=== PATIENT | female | born 1960 | race Caucasian/White ===

== ENCOUNTER 2018-04-09 18:55 | Inpatient (IN) | payer OTHER ==
[~2018-04-09] VITALS: Ht 160 cm; Wt 97.0 kg
[2018-04-09 19:39] LABS: Basophils # (auto) 0 uL; Basophils % (auto) 0.1 % (0.0-2.0); Eosinophils # (auto) 0 uL; Eosinophils % (auto) 0.1 % (0.0-7.0); Hematocrit 38.2 % (36.0-46.0); Hemoglobin 12.1 g/dL (12.2-16.2); Lymphocytes # (auto) 1.3 uL; Lymphocytes % (auto) 10.9 % (10.0-50.0); Mean Corpuscular Hemoglobin 32.1 pg (28.0-32.0); Mean Corpuscular Hgb Conc. 31.7 g/dL (32.0-36.0); Mean Corpuscular Volume 101.2 fL (80.0-100.0); Monocytes # (auto) 0.7 uL; Monocytes % (auto) 6.2 % (0.0-12.0); Neutrophils # (auto) 9.8 uL; Neutrophils % (auto) 82.7 % (37.0-80.0); Nucleated Red Blood Cells % 0.1 %; Platelet Count (auto) 232 10^3/uL (140-450); Red Blood Cells 3.77 10^6/uL (4.0-5.20); Red Cell Distribution Width 17.9 % (11.8-14.3); White Blood Cell 11.8 10^3/uL (4.4-10.8)
[2018-04-09 19:57] LABS: Alanine Aminotransferase 62 U/L (13-56); Albumin 1.8 g/dL (3.4-5.0); Anion Gap 8 (5-15); Aspartate Aminotransferase 115 U/L (15-37); BUN/Creatinine Ratio 10.9; Blood Alcohol < 3.0 mg/dL (0-5); Blood Urea Nitrogen 19 mg/dL (7-18); Calcium 7.4 mg/dL (8.5-10.1); Carbon Dioxide 19 mmol/L (21-32); Chloride 108 mmol/L (98-107); GFR African American 39 mL/min; GFR Non-African American 32 mL/min; Glucose 96 mg/dL (74-106); Magnesium 2.1 mg/dL (1.6-2.6); Potassium 4.7 mmol/L (3.5-5.1); Sodium 135 mmol/L (136-145)
[2018-04-09 20:02] LABS: Alkaline Phosphatase 255 U/L (45-117); Bilirubin, Total 2.1 mg/dL (0.2-1.0); Total Protein 4.8 g/dL (6.4-8.2)
[2018-04-09 22:23] LABS: INR 1.34 (0.9-1.15); Partial Thromboplastin Time 30.8 sec (23.78-33.04); Prothrombin Time 14.1 sec (9.27-12.13)
[2018-04-09] MEDS ORDERED: NOREPINEPHRINE 8 MG/250ML KIT 250 ML IV ONE (23:17)
[2018-04-09] MEDS: NOREPINEPHRINE 8 MG/250ML KIT 250 ML IV SCH (23:30)
[2018-04-10] MEDS ORDERED: SODIUM CHLORIDE 0.9% 1,000 ML IV ONE ×3 (00:30→16:00)
[2018-04-10 00:48] LABS: Urine Bacteria MANY /hpf (None Seen); Urine Blood Negative /uL (Negative); Urine Hyaline Cast FEW /lpf (0 - 2); Urine Specific Gravity 1.018 (1.001-1.035); Urine WBC 89 /hpf (0 - 5)
[2018-04-10] MEDS ORDERED: cefTRIAXone 1GM/50ML D5W 50 ML IV ONE (01:30)
[2018-04-10 01:35] LABS: Amphetamine Screen, Urine NEGATIVE (NEGATIVE); Barbiturate Scree,Urine NEGATIVE (NEGATIVE); Benzodiazephine Screen, Urine NEGATIVE (NEGATIVE); Cannabinoid Screen, Urine NEGATIVE (NEGATIVE); Cocaine Screen, Urine NEGATIVE (NEGATIVE); Opiate Scree,Urine POSITIVE (NEGATIVE); Phencyclidine Screen, Urine NEGATIVE (NEGATIVE)
[2018-04-10] MEDS ORDERED: ALBUMIN 25% 100 ML IV ONE (06:15)
[2018-04-10] MEDS ORDERED: ONDANSETRON HCL 4 MG/2 ML VIAL IV PRN (06:15)
[2018-04-10] MEDS ORDERED: ACETAMINOPHEN 500 MG TAB PO PRN (06:15)
[2018-04-10 07:24] LABS: Basophils # (auto) 0.1 uL; Basophils % (auto) 0.6 % (0.0-2.0); Eosinophils # (auto) 0 uL; Eosinophils % (auto) 0.1 % (0.0-7.0); Hematocrit 37.6 % (36.0-46.0); Lymphocytes # (auto) 2.3 uL; Lymphocytes % (auto) 18.8 % (10.0-50.0); Mean Corpuscular Hemoglobin 32.1 pg (28.0-32.0); Mean Corpuscular Hgb Conc. 31.9 g/dL (32.0-36.0); Mean Corpuscular Volume 100.5 fL (80.0-100.0); Monocytes % (auto) 7.7 % (0.0-12.0); Neutrophils % (auto) 72.8 % (37.0-80.0); Nucleated Red Blood Cells % 0.1 %; Platelet Count (auto) 289 10^3/uL (140-450); Red Blood Cells 3.74 10^6/uL (4.0-5.20); Red Cell Distribution Width 17.3 % (11.8-14.3); White Blood Cell 12.3 10^3/uL (4.4-10.8)
[2018-04-10] MEDS ORDERED: LACTULOSE 20Gm/30ML SOLN PO ONE ×2 (07:45→15:15)
[2018-04-10 07:50] LABS: Lactic Acid w/Reflex 2.3 mmol/L (0.4-2.0)
[2018-04-10 08:01] LABS: BUN/Creatinine Ratio 13.5; Potassium 4.4 mmol/L (3.5-5.1)
[2018-04-10] MEDS: cefTRIAXone 1GM/50ML D5W 50 ML IV SCH (09:00)
[2018-04-10] MEDS ORDERED: LORazepam 2MG/ML-1ML VIAL IV ONE (10:45)
[2018-04-10] MEDS ORDERED: DILTIAZEM HCL 25 MG/5 ML VIAL IV ONE ×2 (10:45→16:45)
[2018-04-10] MEDS: LORazepam 2MG/ML-1ML VIAL ONE ×2 (10:54→16:30)
[2018-04-10 12:08] LABS: Albumin 1.8 g/dL (3.4-5.0); Bilirubin, Direct 1.6 mg/dL (0-0.2)
[2018-04-10 12:11] LABS: Bilirubin, Total 2.1 mg/dL (0.2-1.0); Total Protein 4.7 g/dL (6.4-8.2)
[2018-04-10] MEDS: NOREPINEPHRINE 8 MG/250ML KIT 250 ML IV SCH (14:47)
[2018-04-10] MEDS ORDERED: PANTOPRAZOLE 40 MG/10 ML VIAL IV ONE (15:15)
[2018-04-10] MEDS: SODIUM CHLORIDE 0.9% 1,000 ML IV SCH ×2 (15:30→22:14)
[2018-04-10] MEDS: LACTULOSE 20Gm/30ML SOLN PO SCH (18:00)
[2018-04-10] MEDS ORDERED: AMIODARONE HCL 150 MG in D5W 5% 100 ML IV ONE (18:30)
[2018-04-10] MEDS ORDERED: AMIODARONE HCL 900 MG in DEXTROSE 500 ML IV SCH (18:45)
[2018-04-10] MEDS: LORazepam 2MG/ML-1ML VIAL IV PRN (20:30)
[2018-04-11] MEDS: LACTULOSE 20Gm/30ML SOLN PO SCH ×5 (00:09→23:31)
[2018-04-11] MEDS: AMIODARONE HCL 900 MG in DEXTROSE 500 ML IV SCH ×2 (01:30→15:25)
[2018-04-11 04:11] LABS: Basophils # (auto) 0.1 uL; Eosinophils # (auto) 0 uL; Hemoglobin 10.8 g/dL (12.2-16.2); Lymphocytes # (auto) 1.6 uL; Monocytes # (auto) 0.5 uL; Neutrophils % (auto) 76.6 % (37.0-80.0)
[2018-04-11 04:13] LABS: Basophils % (auto) 0.6 % (0.0-2.0); Eosinophils % (auto) 0.1 % (0.0-7.0); Hematocrit 34.2 % (36.0-46.0); Lymphocytes % (auto) 17.3 % (10.0-50.0); Mean Corpuscular Hemoglobin 32.4 pg (28.0-32.0); Mean Corpuscular Hgb Conc. 31.6 g/dL (32.0-36.0); Mean Corpuscular Volume 102.6 fL (80.0-100.0); Monocytes % (auto) 5.4 % (0.0-12.0); Neutrophils # (auto) 7.2 uL; Platelet Count (auto) 222 10^3/uL (140-450); Red Blood Cells 3.33 10^6/uL (4.0-5.20); Red Cell Distribution Width 17.2 % (11.8-14.3); White Blood Cell 9.4 10^3/uL (4.4-10.8)
[2018-04-11 04:46] LABS: Albumin 2.2 g/dL (3.4-5.0); BUN/Creatinine Ratio 12.7; Calcium 6.4 mg/dL (8.5-10.1); Potassium 3.9 mmol/L (3.5-5.1)
[2018-04-11 04:49] LABS: Bilirubin, Total 2.6 mg/dL (0.2-1.0); Total Protein 4.8 g/dL (6.4-8.2)
[2018-04-11] MEDS: SODIUM CHLORIDE 0.9% 1,000 ML IV SCH ×3 (05:04→17:22)
[2018-04-11] MEDS: PANTOPRAZOLE 40 MG/10 ML VIAL IV SCH (09:03)
[2018-04-11] MEDS: cefTRIAXone 1GM/50ML D5W 50 ML IV SCH (09:03)
[2018-04-11 09:12] LABS: Urine Amorphous Crystal FEW /hpf (None Seen); Urine Bacteria FEW /hpf (None Seen); Urine Blood 1+ /uL (Negative); Urine Hyaline Cast MOD /lpf (0 - 2); Urine Specific Gravity 1.014 (1.001-1.035); Urine WBC 102 /hpf (0 - 5); Urine WBC Clumps PRESENT /hpf (None Seen)
--- NOTE | 2018-04-11 10:04 | NUR ---
ORDER AND CLINICALS FAXED TO [facility] REQUESTING TRANSFER ..FAX [phone] PHONE [phone]
[2018-04-11] MEDS ORDERED: ALBUTEROL SULF 2.5 MG/0.5ML(0.5%) NEB SOLN NEB ONE (10:15)
[2018-04-11] MEDS ORDERED: IPRATROPIUM BROM 0.5 MG/2.5ML INH SOL NEB ONE (10:15)
[2018-04-11] MEDS ORDERED: ETOMIDATE (2MG/ML) 20ML VIAL IV ONE (12:45)
[2018-04-11] MEDS ORDERED: SUCCINYLCHOLINE CHLORIDE 20 MG/ML 10ML VIAL IV ONE (12:45)
[2018-04-11] MEDS ORDERED: MIDAZOLAM DRIP 50 mg/50mL 50 ML IV ONE (12:53)
[2018-04-11 13:02] VITALS: BP 144/87
[2018-04-11] MEDS: MIDAZOLAM DRIP 50 mg/50mL 50 ML IV SCH ×2 (13:20→15:47)
[2018-04-11 14:07] VITALS: BP 108/51
[2018-04-11 15:50] VITALS: BP 111/58
--- NOTE | 2018-04-11 15:55 | NUR ---
NEW TRANSFER ORDER FAXED TO [facility] [phone]. CONTACT IS [place] [phone]
--- NOTE | 2018-04-11 16:45 | NUR ---
WOUND CARE NOTE: PATIENT IN ER BED 5. SHE HAS BEEN ADMITTED TO [facility] WITH DIAGNOSIS OF HYPOTENSION. SHE HAS BEEN INTUBATED, SEDATED, CURRENT ABAD SCORE IS 10. PATIENT HAS BLANCHABLE REDNESS TO BILATERAL PLANTAR FEET. THERE IS A TRANSFER ORDER TO [facility]. PLACED SKIN/WOUND CARE PLAN, PATIENT WOULD BENEFIT FROM FREQUENT TURN SCHEDULE Q 2 HOURS, PRN CONDITION PERMITS, WITH PRESSURE REDISTRIBUTION USING PILLOWS/WEDGES, BID/PRN APPLICATION OF MOISTURE BARRIER CREAM, COVERING UPPER MEDIAL SACRUM WITH OPTIFOAM GENTLE SACRAL DRESSING PREVENTATIVE, ELEVATION OF BILATERAL FEET/HEELS USING PILLOWS, DIETARY CONSULT FOR LOW ABAD, CONTINUED MONITORING BY WOUND CARE TEAM.
[2018-04-11] MEDS: PROPOFOL 100 ML IV SCH (17:21)
[2018-04-11 18:00] VITALS: BP 99/54
[2018-04-11 20:00] VITALS: BP 95/47
[2018-04-11 22:00] VITALS: BP 60/22
[2018-04-11 22:22] LABS: Folate (Folic Acid) 16.88 ng/mL (5.38-24)
[2018-04-12] VITALS (25 sets, daily range): BP systolic 85–125; BP diastolic 18–81
[2018-04-12] MEDS: NOREPINEPHRINE 8 MG/250ML KIT 250 ML IV SCH (00:34)
[2018-04-12] MEDS: SODIUM CHLORIDE 0.9% 1,000 ML IV SCH ×4 (00:38→20:50)
[2018-04-12] MEDS: LACTULOSE 20Gm/30ML SOLN PO SCH ×3 (06:25→18:29)
--- NOTE | 2018-04-12 09:04 | NUR ---
HOLD P.T. UNTIL PT IS EXTUBATED.
[2018-04-12] MEDS: cefTRIAXone 1GM/50ML D5W 50 ML IV SCH (09:12)
[2018-04-12] MEDS: PANTOPRAZOLE 40 MG/10 ML VIAL IV SCH (09:12)
[2018-04-12 09:23] LABS: Basophils # (auto) 0.1 uL; Hemoglobin 9.9 g/dL (12.2-16.2); Monocytes # (auto) 0.8 uL; Neutrophils % (auto) 67.4 % (37.0-80.0); White Blood Cell 11.2 10^3/uL (4.4-10.8)
[2018-04-12 09:25] LABS: Basophils % (auto) 0.8 % (0.0-2.0); Eosinophils # (auto) 0.2 uL; Eosinophils % (auto) 1.3 % (0.0-7.0); Hematocrit 32.1 % (36.0-46.0); Lymphocytes # (auto) 2.6 uL; Lymphocytes % (auto) 23.7 % (10.0-50.0); Mean Corpuscular Hemoglobin 32.4 pg (28.0-32.0); Mean Corpuscular Hgb Conc. 30.9 g/dL (32.0-36.0); Mean Corpuscular Volume 104.6 fL (80.0-100.0); Monocytes % (auto) 6.8 % (0.0-12.0); Neutrophils # (auto) 7.5 uL; Nucleated Red Blood Cells % 0.2 %; Platelet Count (auto) 182 10^3/uL (140-450); Red Blood Cells 3.07 10^6/uL (4.0-5.20); Red Cell Distribution Width 18.1 % (11.8-14.3)
[2018-04-12 09:39] LABS: Albumin 1.7 g/dL (3.4-5.0); Calcium 6.1 mg/dL (8.5-10.1); Potassium 3.5 mmol/L (3.5-5.1)
[2018-04-12 09:44] LABS: BUN/Creatinine Ratio 13.8; Bilirubin, Total 2.1 mg/dL (0.2-1.0); Total Protein 3.9 g/dL (6.4-8.2)
[2018-04-12] MEDS: AMIODARONE HCL 200 MG TAB PO SCH (10:05)
--- NOTE | 2018-04-12 12:13 | NUR ---
SPOKE WITH TODD DILLARD AT [facility]...SHE WILL WORK ON TRANSFERRING PATIENT.
[2018-04-12] MEDS: PROPOFOL 100 ML IV SCH (13:41)
[2018-04-12] MEDS: MIDAZOLAM DRIP 50 mg/50mL 50 ML IV SCH ×2 (15:27→19:50)
--- NOTE | 2018-04-12 15:27 | NUR ---
Nutrition Assessment/consult Notes please see attached link for complete assessment Est. Needs BW [id number] kcal (20-23 kcal/kgBW), 49-64 gms pro (0.6-0.8 gms/kgBW d/t elev ammonia severe hypoalb). Will continue to monitor pertinent labs and reassess nutrient need prn Rec: EN support with Nutrihep @ 45ml/hr per MD approval Addendum: 04/12/18 at [address] Amended: Links added.
--- NOTE | 2018-04-12 19:56 | NUR ---
REPORT Report received from MARY Navarrete.
--- NOTE | 2018-04-12 20:09 | NUR ---
ADMIT TO ICU Pt admitted to ICU via gurney on portable bus monitor, portable O2, intubated and being bagged by RT. Pt sedated. Pt transferred to bed, connected to mechanical ventilator by RT, and connected to ICU bedside monitoring without incident. BVM at bedside. Pt weighed by built in bed scale. See IV spreadsheet and completed physical assessment intervention. Bed locked, in lowest position with top two side rails up, and call light within reach. All alarms on and audible. Will continue to monitor pt.
--- NOTE | 2018-04-12 22:33 | NUR ---
CALL TO Called and spoke with Bk, pt's who confirmed the correct password. Updated on pt condition, admission to ICU room, and answered all questions. Bk verbalized understanding and provided admission answers. Bk stated he will try to bring in pt's home medications tomorrow afternoon.
[2018-04-13] VITALS (106 sets, daily range): BP systolic 67–151; BP diastolic 37–98
[2018-04-13] MEDS: LACTULOSE 20Gm/30ML SOLN PO SCH ×5 (00:15→23:50)
[2018-04-13] MEDS: ALBUTEROL SULF 2.5 MG/0.5ML(0.5%) NEB SOLN NEB PRN ×3 (02:16→18:22)
[2018-04-13] MEDS: IPRATROPIUM BROM 0.5 MG/2.5ML INH SOL NEB PRN ×3 (02:16→18:22)
[2018-04-13 04:00] LABS: Basophils # (auto) 0.1 uL; Basophils % (auto) 0.7 % (0.0-2.0); Eosinophils # (auto) 0.1 uL; Eosinophils % (auto) 0.6 % (0.0-7.0); Hematocrit 35.1 % (36.0-46.0); Hemoglobin 11.1 g/dL (12.2-16.2); Lymphocytes # (auto) 1.6 uL; Lymphocytes % (auto) 11.9 % (10.0-50.0); Mean Corpuscular Hgb Conc. 31.8 g/dL (32.0-36.0); Mean Corpuscular Volume 100.9 fL (80.0-100.0); Monocytes # (auto) 0.5 uL; Monocytes % (auto) 3.8 % (0.0-12.0); Neutrophils # (auto) 11.3 uL; Nucleated Red Blood Cells % 0.1 %; Platelet Count (auto) 167 10^3/uL (140-450); Red Blood Cells 3.48 10^6/uL (4.0-5.20); Red Cell Distribution Width 17.8 % (11.8-14.3); White Blood Cell 13.7 10^3/uL (4.4-10.8)
[2018-04-13 04:14] LABS: Albumin 1.6 g/dL (3.4-5.0); Potassium 3.3 mmol/L (3.5-5.1)
[2018-04-13 04:17] LABS: BUN/Creatinine Ratio 14.2; Bilirubin, Total 2.7 mg/dL (0.2-1.0); Total Protein 3.8 g/dL (6.4-8.2)
--- NOTE | 2018-04-13 04:54 | NUR ---
Respiratory note: FIO2 INCREASED TO 40% POST ABG RESULTS. RN AWARE OF CHANGES
[2018-04-13] MEDS: SODIUM CHLORIDE 0.9% 1,000 ML IV SCH (06:32)
[2018-04-13] MEDS: NOREPINEPHRINE 8 MG/250ML KIT 250 ML IV SCH ×2 (06:32→23:49)
[2018-04-13] MEDS: MIDAZOLAM DRIP 50 mg/50mL 50 ML IV SCH ×2 (06:32→19:53)
[2018-04-13] MEDS: PROPOFOL 100 ML IV SCH ×2 (07:04→23:52)
--- NOTE | 2018-04-13 07:45 | NUR ---
REPORT Report given to quita Butler RN. Care endorsed.
--- NOTE | 2018-04-13 07:46 | NUR ---
CHARTING ERROR ON VENT. CHARTING, WRONG PT. AT 0650. Addendum: 04/13/18 at 0747 by Char Ramirez RT Amended: Links added.
--- NOTE | 2018-04-13 07:55 | NUR ---
ASSESS- PT. LYING IN BED ON VENT SIZE # 8.0 ET, 23 AT THE LIP, AC-14, TV-500, PEEP-5, FIO2-40%. LUNGS CLEAR ANNY. INSPIRATORY AND EXPIRATORY. PT. HAS GAG/COUGH REFLEX. PUPILS 4 AND BRISK ANNY. ON VERSED GTT. AT 10 MG./HR. AND PROPOFOL GTT. AT 10 MCG. TLC RT. IJ INTACT. NGT RT. NARE INTACT. PT. IS NPO. ABD. SOFT, LG. BOWEL SOUNDS ALL FOUR QUADRANTS. F/C TO GRAVITY WITH LT. HAKEEM URINE SM. AMOUNT. RADIAL PULSES WEAK, PALPABLE ANNY. PEDAL PULSES WEAK, PALPABLE ANNY. 1 PLUS PEDAL EDEMA LE ANNY. SKIN TEARS TO LT. ARM TIMES 2 WITH OPTIFOAM DSG. D/I. HEELS PINK, BLANCHABLE ANNY. ABRASION TO RT. ANKLE OPEN TO AIR, NO DRAINAGE. LEVOPHED GTT. AT 6 MCG. TO KEEP SBP> 90. A-FIB, HR 80'S-90'S WITH PVC'S. FLEXISEAL TO GRAVITY WITH GREEN LIQUID STOOL LG. AMOUNT. ON CONTACT ISOLATION TO R/O C-DIFF.
--- NOTE | 2018-04-13 08:32 | NUR ---
DR. Keith FONTANA Provider/Hospitalist at bedside. GAVE UPDATE ON PT. INFORMED OF K LEVEL OF 3.3 THIS AM. INFORMED OF PT'S. BP DECREASING IN THE 80'S, INCREASING LEVO GTT. AND RR INCREASING TO THE LOW 30'S. NEW ORDERS RECEIVED.
[2018-04-13] MEDS ORDERED: VANCOMYCIN PER PHARMACY 0 MG IV SCH (09:00)
--- NOTE | 2018-04-13 09:00 | NUR ---
DR. TIPTON Provider/Hospitalist at bedside FOR CONSULT. NEW ORDERS RECEIVED.
--- NOTE | 2018-04-13 09:15 | NUR ---
DR. JEFF Provider/Hospitalist at bedside.
[2018-04-13] MEDS ORDERED: PIPERACILLIN-TAZOB 3.375GM 100 ML IV ONE (09:30)
[2018-04-13] MEDS ORDERED: LACTATED RINGER'S 2,000 ML IV ONE (09:30)
[2018-04-13] MEDS: PANTOPRAZOLE 40 MG/10 ML VIAL IV SCH (09:40)
[2018-04-13] MEDS: cefTRIAXone 1GM/50ML D5W 50 ML IV SCH (09:40)
[2018-04-13] MEDS: AMIODARONE HCL 200 MG TAB PO SCH (09:41)
[2018-04-13] MEDS: POTASSIUM CHL 20MEQ/100ML 100 ML IV SCH ×2 (09:45→12:09)
--- NOTE | 2018-04-13 10:34 | NUR ---
assessment Patient is a 57 year old female who is on a vent. Per patients Bk prior to admission patient lived home with him and functioned independently. Per Bk he found patient weak, shaking, and confused so he called 911. Patients PCP is Dr Garland at [facility]. Patient has a fww and a cane for home use. I informed Bk that patients post discharge needs to be determined after extubation and prior to discharge. I informed [place] he has a right to speak to a social work associate regarding all care. I informed [place] he has a right to participate in any and all discharge planning. [place] is aware of visiting hours on the hospital floor. I informed Bk he has a right to privacy. Patient does not have a POA and advanced directive. I have offered [place] information on POA and advanced directives. I informed Bk the advantages and benefits of having an Advanced Directive. Bk verbalized understanding. Addendum: 04/18/18 at 1040 by Marianne BIRD Amended: Links added.
--- NOTE | 2018-04-13 11:10 | NUR ---
DR. GA Provider/Hospitalist at bedside FOR CONSULT. NEW ORDER RECEIVED.
[2018-04-13 11:38] LABS: Urine Bacteria NONE SEEN /hpf (None Seen); Urine Blood 1+ /uL (Negative); Urine Hyaline Cast MANY /lpf (0 - 2); Urine Specific Gravity 1.023 (1.001-1.035); Urine WBC 17 /hpf (0 - 5)
[2018-04-13 11:46] LABS: Protein, Urine 67.2 mg/dL (0.0-11.9)
--- NOTE | 2018-04-13 13:00 | NUR ---
PT'S. SBP DECREASING IN THE 70'S-80'S. TITRATING LEVOPHED GTT. UP TO KEEP SBP > 90. CONTINUING TO MONITOR BP.
--- NOTE | 2018-04-13 13:07 | NUR ---
BP OF 79/56. INCREASED LEVOPHED TO 22 MCG. CONTINUE TO MONITOR BP.
--- NOTE | 2018-04-13 13:30 | NUR ---
TECH AT BS FOR EEG.
--- NOTE | 2018-04-13 13:32 | NUR ---
MD Called/paged Dr. PATE called re:[DECREASE IN PT'S. BP AND HAVING TO INCREASE LEVO GTT. CONECTED TO DR. FONTANA'S PHONE. RECEIVED ORDER FOR 2ND VASOPRESSOR IF NEEDED. Continue care.
--- NOTE | 2018-04-13 13:40 | NUR ---
DR. LÓPEZ Provider/Hospitalist at bedside. NEW ORDERS RECEIVED.
--- NOTE | 2018-04-13 14:00 | NUR ---
Family updated on pt status Family of NIKKO KAM updated on patient's status and condition. All questions and concerns addressed. verbalized understanding. VISITING AT THE BS. BROUGHT IN PT'S. HM. MEDS. WILL UPDATE MED REC. PT. TOOKS MEDS. BACK .
[2018-04-13] MEDS ORDERED: VANCOMYCIN 1GM/250ML 250 ML IV SCH (15:00)
--- NOTE | 2018-04-13 15:30 | NUR ---
SBP DECREASED TO THE LOW 80'S. ON LEVOPHED GTT. AT 30 MCG. STARTED NEOSYNEPHRINE GTT. AT 10 MCG.
--- NOTE | 2018-04-13 15:30 | NUR ---
DR. OWEN Provider/Hospitalist at bedside. GAVE UPDATE ON PT. NEW ORDERS RECEIVED.
[2018-04-13] MEDS: PHENYLEPHRINE INJ 20 MG in SODIUM CHL 0.9% 250 ML IV SCH ×2 (15:35→21:52)
[2018-04-13] MEDS ORDERED: DIGOXIN (250MCG/ML) 2 ML AMPULE ONE (15:37)
[2018-04-13] MEDS ORDERED: FUROSEMIDE 40 MG/4 ML VIAL ONE (15:37)
[2018-04-13] MEDS ORDERED: DIGOXIN (250MCG/ML) 2 ML AMPULE IV ONE (15:45)
[2018-04-13] MEDS ORDERED: FUROSEMIDE 40 MG/4 ML VIAL IV ONE (15:45)
[2018-04-13] MEDS ORDERED: MORP60TA25 PO (16:53)
[2018-04-13] MEDS ORDERED: LISI2.5T47 PO (16:53)
[2018-04-13] MEDS ORDERED: ACET-1156 PO (16:53)
[2018-04-13] MEDS ORDERED: CYAN50TA3 PO (16:53)
[2018-04-13] MEDS ORDERED: ERGO2000 PO (16:53)
[2018-04-13] MEDS ORDERED: CYAN100060 SC (16:53)
[2018-04-13] MEDS ORDERED: LEVO125T7 PO (16:53)
[2018-04-13] MEDS ORDERED: RANI150C11 PO (16:53)
[2018-04-13] MEDS ORDERED: MET25T PO (16:53)
[2018-04-13] MEDS ORDERED: ONDA-155 PO (16:53)
[2018-04-13] MEDS ORDERED: POTA20TA53 PO (16:53)
[2018-04-13] MEDS ORDERED: FURO20TA3 PO (16:53)
--- NOTE | 2018-04-13 16:54 | NUR ---
JEN CALLED. GAVE UPDATE ON PT.
[2018-04-13] MEDS: PIPERACILLIN-TAZOB 3.375GM 100 ML IV SCH ×2 (17:47→23:50)
--- NOTE | 2018-04-13 18:00 | NUR ---
O2 SATS DECREASED TO 87%-88% ON VENT. GAVE PT. 100% FIO2. NOTIFIED RT WHO CHANGED PULSE OX AND PLACED PT. ON 100% FIO2 ON VENT. O2 SATS INCREASED TO 95%-96%.
--- NOTE | 2018-04-13 18:22 | NUR ---
Respiratory note: PRN MED NEB TREATMENT GIVEN IN LINE. TOLERATED WELL, NO ADVERSE REACTIONS NOTED. WILL CONTINUE TO MONITOR.
[2018-04-13 19:19] LABS: BUN/Creatinine Ratio 11.5; Potassium 3.9 mmol/L (3.5-5.1)
--- NOTE | 2018-04-13 19:45 | NUR ---
OPENING SHIFT NOTE Received report from MARY Butler. Pt resting in bed, intubated, sedated and on vasopressors. See IV spreadsheet and completed physical assessment intervention. Bed locked, in lowest position with top two side rails up, and call light within reach. All alarms on and audible. Will continue to monitor pt.
--- NOTE | 2018-04-13 19:55 | NUR ---
Respiratory note: CRITICAL ABG RESULTS REPORTED TO RN. RN WILL PAGE DR. GA FOR NEW VENT ORDERS.
--- NOTE | 2018-04-13 20:15 | NUR ---
CRITICAL ABG RESULTS Paged Dr. Fields through his exchange regarding critical ABG results. Awaiting return phone call.
--- NOTE | 2018-04-13 20:29 | NUR ---
DR. FIELDS PHONE CALL Received return phone call from Dr. Fields. Updated on pt condition and notified of critical ABG results. Telephone orders received and verified via read-back. Will notify RT of MD ordered ventilator changes.
[2018-04-13] MEDS ORDERED: SODIUM BICARBONATE 8.4 % INJ 50ML VIAL IV ONE (20:30)
--- NOTE | 2018-04-13 20:32 | NUR ---
PAGED RT Paged Katrina RT to come to bedside.
--- NOTE | 2018-04-13 20:37 | NUR ---
Respiratory note: NEW VENT ORDERS PER DR. GA. AC 20 VT 550 PEEP 10. ABG TO FOLLOW IN ONE HOUR. MARTA CONTINUE TO MONITOR. Addendum: 04/13/18 at 2148 by MOHAMUD WINKLER, RT Per Dr. Fields
--- NOTE | 2018-04-13 20:37 | NUR ---
RT AT BEDSIDE Katrina, RT at bedside. Notified of telephone orders received from Dr. Fields to make changes to ventilator. MD ordered vent changes being made. ABG will be repeated in one hour per MD order.
--- NOTE | 2018-04-13 20:44 | NUR ---
RADIOLOGY AT BEDSIDE critical power install technician at bedside for MD ordered stat portable CXR.
--- NOTE | 2018-04-13 21:50 | NUR ---
DR. FIELDS AT BEDSIDE Dr. Fields at bedside.
--- NOTE | 2018-04-13 21:53 | NUR ---
Respiratory note: POST ABG RESULTS AND PIP PRESSURE REPORTED TO DR. QURESHI. NO NEW RESPIRATORY ORDERS GIVEN, WILL CONTINUE TO MONITOR ORDERED.
--- NOTE | 2018-04-13 22:50 | NUR ---
Respiratory note: ETT RETRACTED TO 22CM, TOLERATED WELL. NO ADVERSE REACTIONS.
--- NOTE | 2018-04-13 23:30 | NUR ---
Respiratory note: DR. QURESHI AT BEDSIDE, NEW VENT ORDERS GIVEN. APRV SETTINGS: P-HIGH 30, P-LOW 0, T-HIGH 5, T-LOW 0.6, FIO2 100%. PT PLACED ON VENT V20 FOR APRV MODE, PT PLACED ON HEATED WIRE CIRCUIT. PT BAGGED WITH PEEP VALVE AND 100% FIO2. VENT PASSED SST AND PT PLACED ON VENT SETTINGS LISTED ABOVE. RN AND DR. QURESHI AT BEDSIDE, ABG TO FOLLOW IN 30 MINS. WILL CONTINUE TO MONITOR ORDERED.
--- NOTE | 2018-04-13 23:59 | NUR ---
VENT SETTINGS Mode: APRV Time High: 5 seconds Time Low: 0.5 seconds Addendum: 04/14/18 at 0315 by Janel Jaeger RN RN Amended: Links added.
--- NOTE | 2018-04-13 23:59 | NUR ---
VENT SETTINGS Time High 5 seconds Time Low 0.5 seconds
[2018-04-14] VITALS (108 sets, daily range): BP systolic 70–160; BP diastolic 32–100
--- NOTE | 2018-04-14 00:15 | NUR ---
Respiratory note: ABG RESULTS REPORTED TO DR. QURESHI. NEW VENT ORDERS GIVEN, ABG TO FOLLOW IN 30 MINS. WILL CONTINUE TO MONITOR.
[2018-04-14] MEDS ORDERED: SODIUM BICARBONATE 8.4% INJ 50ML SYRINGE ONE ×3 (00:34→00:49)
[2018-04-14] MEDS ORDERED: SODIUM BICARBONATE 8.4 % INJ 50ML VIAL IV ONE ×3 (00:39→01:45)
--- NOTE | 2018-04-14 01:25 | NUR ---
Respiratory note: FIO2 TITRATED TO 90% POST ABG RESULTS. RN AWARE, WILL CONTINUE TO MONITOR.
--- NOTE | 2018-04-14 01:40 | NUR ---
PHONE CALL FROM DR. FIELDS Received phone call from Dr. Fields. Updated on pt condition. Telephone orders received and verified via read-back. Will continue to monitor pt.
--- NOTE | 2018-04-14 01:47 | NUR ---
TACHYPNEA Called and s/w Dr. Fields. Notified of pt's tachypnea. Telephone orders received for okay to increase sedation. Will continue to monitor pt.
[2018-04-14] MEDS ORDERED: SODIUM BICARB 50ML SYR 150 ML in SODIUM CHLORIDE 0.9% 1,000 ML IV SCH (02:00)
--- NOTE | 2018-04-14 02:00 | NUR ---
VENT SETTINGS Mode: APRV Time High: 5 seconds Time Low: 0.5 seconds Addendum: 04/14/18 at 0321 by Janel Jaeger RN RN Amended: Links added.
[2018-04-14] MEDS: MIDAZOLAM DRIP 50 mg/50mL 50 ML IV SCH ×4 (02:03→22:55)
[2018-04-14] MEDS: NOREPINEPHRINE 8 MG/250ML KIT 250 ML IV SCH (04:11)
[2018-04-14 04:12] LABS: Basophils # (auto) 0.1 uL; Basophils % (auto) 0.3 % (0.0-2.0); Eosinophils # (auto) 0.1 uL; Eosinophils % (auto) 0.5 % (0.0-7.0); Hematocrit 40.1 % (36.0-46.0); Hemoglobin 12.8 g/dL (12.2-16.2); Lymphocytes # (auto) 1.6 uL; Lymphocytes % (auto) 8.5 % (10.0-50.0); Mean Corpuscular Hemoglobin 31.9 pg (28.0-32.0); Mean Corpuscular Hgb Conc. 31.8 g/dL (32.0-36.0); Mean Corpuscular Volume 100.1 fL (80.0-100.0); Monocytes # (auto) 0.8 uL; Monocytes % (auto) 4.5 % (0.0-12.0); Neutrophils # (auto) 15.9 uL; Neutrophils % (auto) 86.2 % (37.0-80.0); Nucleated Red Blood Cells % 0.3 %; Platelet Count (auto) 160 10^3/uL (140-450); Red Cell Distribution Width 17.7 % (11.8-14.3); White Blood Cell 18.4 10^3/uL (4.4-10.8)
[2018-04-14 04:30] LABS: Albumin 1.5 g/dL (3.4-5.0); Calcium 6.1 mg/dL (8.5-10.1); Potassium 3.1 mmol/L (3.5-5.1)
[2018-04-14 04:34] LABS: BUN/Creatinine Ratio 11.8; Bilirubin, Total 3.5 mg/dL (0.2-1.0); Total Protein 3.9 g/dL (6.4-8.2); Uric Acid 6.5 mg/dL (2.6-6.0)
[2018-04-14] MEDS: PIPERACILLIN-TAZOB 3.375GM 100 ML IV SCH ×4 (05:37→23:46)
[2018-04-14] MEDS: PHENYLEPHRINE INJ 20 MG in SODIUM CHL 0.9% 250 ML IV SCH ×2 (05:58→14:03)
[2018-04-14] MEDS: LACTULOSE 20Gm/30ML SOLN PO SCH ×4 (06:00→23:45)
--- NOTE | 2018-04-14 07:09 | NUR ---
PHONE CALL FROM DR. FIELDS Received phone call from Dr. Fields. Updated on pt condition and notified of am ABG results. Telephone orders received and verified via read-back. Will notify RT to pull back ETT by 1 mm.
--- NOTE | 2018-04-14 07:12 | NUR ---
RT CALLED REGARDING ETT Called and spoke with ALEXYS RT. Notified of telephone orders received to pull back ETT by 1 mm.
[2018-04-14] MEDS ORDERED: NOREPINEPHRINE IV SCH (07:15)
--- NOTE | 2018-04-14 07:30 | NUR ---
REPORT Report given to quita Butler RN. Care endorsed.
--- NOTE | 2018-04-14 07:50 | NUR ---
ASSESS- PT. LYING IN BED ON VENT SIZE # 8.0 ET, 21 AT THE LIP, APRV MODE, FIO2-55%. LUNGS CLEAR ANNY. INSPIRATORY AND EXPIRATORY. PT. HAS GAG/COUGH REFLEX. PUPILS 3 AND BRISK ANNY. SCELERAEDEMA ANNY. EYES WITH JAUNDICE COLOR EYES ANNY. ON VERSED GTT. AT 12 MG./HR. AND PROPOFOL GTT. AT 5 MCG. PT. RESPONDS TO TACTILE/PAINFUL STIMULI. NO MOVEMENT OF EXTREMITIES SEEN. ABD. FIRM, LG. BOWEL SOUNDS ALL FOUR QUADRANTS. FLEXISEAL IN PLACE WITH GREEN LIQUID STOOL. F/C TO GRAVITY WITH CLEAR DK. HAKEEM URINE. RADIAL PULSES WEAK, PALPABLE ANNY. WITH CAPILLARY REFILL > 3 SEC. PEDAL PULSES WEAK, PALPABLE WITH CAPILLARY REFILL > 3 SEC. 2 PLUS EDEMA ANNY. UPPER EXTREMITIES AND 3 PLUS EDEMA ANNY. LE. ANNY. HEELS PINK, BLANCHABLE. SOME MOTTLING NOTED ANNY. FT. ON TOES. ON LEVOPHED GTT. AT 30 MCG. AND NEOSYNEPHRINE GTT. AT 30 MCG. TLC RT. IJ INTACT. A-FIB, HR 100'S WITH FREQUENT PVC'S. LT. FOREARM WITH SKIN TEARS WITH OPTIFOAM DSG. D/I. RT. ANKLE WITH ABRASION.
--- NOTE | 2018-04-14 08:25 | NUR ---
Called/paged Dr. JIMÉNEZ called re: . Waiting for call back. Continue care.
--- NOTE | 2018-04-14 08:37 | NUR ---
returned call Dr. JIMÉNEZ returned call, updated on patient status and reason for call, orders received. Continue care.
[2018-04-14] MEDS ORDERED: NOREPINEPHRINE 8 MG/250ML KIT 250 ML IV SCH (08:45)
[2018-04-14] MEDS ORDERED: NOREPINEPHRINE 8 MG/250ML KIT 250 ML IV ONE ×2 (08:52→22:20)
[2018-04-14] MEDS ORDERED: POTASSIUM CHL 20MEQ/100ML 100 ML IV ONE (08:52)
--- NOTE | 2018-04-14 09:00 | NUR ---
C-DIFF TEST NEG. TOOK PT. OFF CONTACT ISOLATION.
--- NOTE | 2018-04-14 09:15 | NUR ---
DR. Keith FONTANA Provider/Hospitalist at bedside. GAVE UPDATE ON PT. NEW ORDERS RECEIVED.
[2018-04-14] MEDS: POTASSIUM CHL 20MEQ/100ML 100 ML IV SCH ×6 (09:21→17:58)
[2018-04-14] MEDS: PANTOPRAZOLE 40 MG/10 ML VIAL IV SCH (09:46)
[2018-04-14] MEDS: cefTRIAXone 1GM/50ML D5W 50 ML IV SCH (09:46)
[2018-04-14] MEDS: AMIODARONE HCL 200 MG TAB PO SCH (09:47)
--- NOTE | 2018-04-14 10:40 | NUR ---
RT NOTE: WAS UNABLE TO DRAW ABG AT THIS TIME. ATTEMPTS DONE BY MULTIPLE RT'S. SPOKE WITH DR QURESHI ABOUT NOT GETTING BLOOD. PER DR QURESHI RUN A VENOUS BLOOD SAMPLE.
--- NOTE | 2018-04-14 11:08 | NUR ---
DR. JIMÉNEZ Provider/Hospitalist at bedside. GAVE UPDATE ON PT. NEW ORDERS RECEIVED.
[2018-04-14] MEDS: ALBUMIN 25% 100 ML IV SCH ×2 (11:51→19:31)
--- NOTE | 2018-04-14 12:35 | NUR ---
DR. JEFF Provider/Hospitalist at bedside.
[2018-04-14] MEDS: NOREPINEPHRINE BITARTRATE 16 MG in D5W 5% 250 ML IV SCH ×2 (13:20→22:55)
[2018-04-14] MEDS ORDERED: PHENYLEPHRINE IV 250 ML IV ONE (13:48)
[2018-04-14] MEDS: POTASSIUM CHLORIDE IV SCH ×3 (13:50→22:55)
[2018-04-14] MEDS: D5W 5% IV SCH ×3 (13:50→22:55)
[2018-04-14] MEDS: OCTREOTIDE ACETATE 100 MCG/ML VL SUBCUT SCH ×2 (13:50→21:35)
[2018-04-14] MEDS: SODIUM BICARBONATE IV SCH ×3 (13:50→22:55)
--- NOTE | 2018-04-14 14:00 | NUR ---
SBP DECREASES TO THE 70'S-80'S. TITRATING NEOSYNEPHRINE GTT. UP TO KEEP SBP >90. CONTINUING TO MONITOR BP.
[2018-04-14] MEDS: PROPOFOL 100 ML IV SCH ×2 (14:07→22:55)
--- NOTE | 2018-04-14 15:00 | NUR ---
SBP MAINTAINING ONE HUNDREDS TO ONE TEENS ON NEOSYNEPHRINE GTT. AT 115 MCG. AND LEVOPHED GTT. AT 30 MCG. CONTINUING TO MONITOR BP.
--- NOTE | 2018-04-14 16:15 | NUR ---
Family updated on pt status Family of KAMNIKKO updated on patient's status and condition. All questions and concerns addressed. verbalized understanding. VISITING AT THE BS.
[2018-04-14] MEDS: PHENYLEPHRINE INJ 40 MG in SODIUM CHL 0.9% 250 ML IV SCH ×2 (16:31→22:55)
--- NOTE | 2018-04-14 19:15 | NUR ---
OPEN ASSUMED CARE, FULL ASSESSMENT DONE; SEE INTERVENTIONS. PROPOFOL AND VERSED INFUSING FOR PT COMFORT; SEE IV SPREADSHEET FOR TITRATIONS. DOUBLE CONCENTRATED LEVOPHED AND DOUBLE CONCENTRATED NEOSYNEPHRINE INFUSING, SBP 140s; WILL TITRATE TOLERATED. VENT SETTINGS: APRV WITH FIO2 35%, T HIGH 5.0, T LOW 0.5, P HIGH 32, P LOW 0. RR 15-20, POX 100%, LUNG SOUNDS CLEAR THROUGHOUT WITH BLOODY ORAL SECRETIONS NOTED. ABDOMEN ROUND AND FIRM WITH ACTIVE BOWEL SOUNDS NOTED, FLEXI SEAL IN PLACE DRAINING LIQUID GREEN. ELMORE DRAINING TO GRAVITY. SEE INTERVENTIONS FOR WOUND ASSESSMENT; ANASARCA NOTED, WEAPING TO ANNY UPPER EXTREMITIES. ORAL CARE AND REPOSITIONING DONE.
[2018-04-14] MEDS ORDERED: NOREPINEPHRINE BITARTRATE 2 ML IV ONE (22:20)
[2018-04-15] VITALS (105 sets, daily range): BP systolic 68–146; BP diastolic 42–96
--- NOTE | 2018-04-15 00:30 | NUR ---
MD DR. QURESHI AT BEDSIDE, UPDATED ON CURRENT GTTs, HEMODYNAMICS, ETC. RT AT BEDSIDE TO DECREASE FIO2 TO 30% PER MD.
--- NOTE | 2018-04-15 02:00 | NUR ---
ESTUARDO DOUBLE CONCENTRATED ESTUARDO TITRATED OFF AT THIS TIME, PT'S SBP REMAINS IN THE 130s, HR AFIB IN THE 70s.
[2018-04-15] MEDS: ALBUMIN 25% 100 ML IV SCH (03:41)
[2018-04-15 03:54] LABS: Albumin 2.4 g/dL (3.4-5.0); BUN/Creatinine Ratio 11.3; Calcium 6.5 mg/dL (8.5-10.1); Potassium 4.5 mmol/L (3.5-5.1)
[2018-04-15 03:56] LABS: Bilirubin, Total 5.5 mg/dL (0.2-1.0); Total Protein 4.2 g/dL (6.4-8.2)
--- NOTE | 2018-04-15 04:38 | NUR ---
CARES FULL BATH AND LINEN CHANGE DONE, NO NEW SKIN ISSUES ASSESSED. ANASARCA REMAINS PRESENT WITH WEAPING TO ANNY UPPER EXT. VITAL SIGNS STABLE. CONTINUE CARE.
[2018-04-15 04:54] LABS: Eosinophils # (auto) 0.2 uL; Monocytes # (auto) 0.7 uL; Red Blood Cells 2.82 10^6/uL (4.0-5.20)
[2018-04-15 04:55] LABS: Basophils # (auto) 0 uL; Basophils % (auto) 0.3 % (0.0-2.0); Eosinophils % (auto) 1.5 % (0.0-7.0); Lymphocytes # (auto) 2.3 uL; Lymphocytes % (auto) 17.7 % (10.0-50.0); Mean Corpuscular Hemoglobin 31.9 pg (28.0-32.0); Mean Corpuscular Volume 99.6 fL (80.0-100.0); Monocytes % (auto) 5.5 % (0.0-12.0); Neutrophils # (auto) 9.9 uL; Nucleated Red Blood Cells % 0.1 %; Platelet Count (auto) 64 10^3/uL (140-450); Red Cell Distribution Width 17.8 % (11.8-14.3); White Blood Cell 13.2 10^3/uL (4.4-10.8)
[2018-04-15] MEDS: LACTULOSE 20Gm/30ML SOLN PO SCH ×4 (05:50→23:41)
[2018-04-15] MEDS: OCTREOTIDE ACETATE 100 MCG/ML VL SUBCUT SCH ×3 (05:50→21:30)
[2018-04-15] MEDS: PIPERACILLIN-TAZOB 3.375GM 100 ML IV SCH ×4 (05:50→23:40)
[2018-04-15] MEDS: POTASSIUM CHLORIDE IV SCH (06:04)
[2018-04-15] MEDS: SODIUM BICARBONATE IV SCH (06:04)
[2018-04-15] MEDS: D5W 5% IV SCH (06:04)
--- NOTE | 2018-04-15 06:22 | NUR ---
ROUNDS PT. HAS REMAINED ON VENT SETTING APRV, T HIGH 5, T LOW 0.5, P HIGH 32, P LOW 0. FIO2 30%, POX 100%. VITAL SIGNS STABLE; DOUBLE CONC. LEVO DOWN TO 26 MCGs WITH SBP IN THE 110s URINE OUTPUT FOR SHIFT: 925 MLs STOOL OUTPUT FOR SHIFT: 500 MLs
--- NOTE | 2018-04-15 07:22 | NUR ---
REPORT CARE ENDORSED TO MARY UPTNO.
--- NOTE | 2018-04-15 08:30 | NUR ---
visits and examines patient - orders received.
--- NOTE | 2018-04-15 09:30 | NUR ---
visits and examines patient - no orders received.
[2018-04-15] MEDS: MIDAZOLAM DRIP 50 mg/50mL 50 ML IV SCH (09:32)
--- NOTE | 2018-04-15 09:35 | NUR ---
NO COUGH/GAG REFLEX. EXTREMITIES DO NOT WITHDRAW TO DEEP PAINFUL STIMULI. PUPILS SLUGGISH AT 3MM - SEDATION VACATION STARTED.
[2018-04-15] MEDS: NOREPINEPHRINE BITARTRATE 16 MG in D5W 5% 250 ML IV SCH ×2 (09:43→20:00)
--- NOTE | 2018-04-15 09:54 | NUR ---
HOLD P.T. UNTIL PATIENT IS EXTUBATED.
--- NOTE | 2018-04-15 10:50 | NUR ---
RESP 38/MIN. HYPO GAG NOTED AND SLUGGISH WITHDRAWALS OF EXTREMITIES TO DEEP PAINFUL STIMULI NOTED - SEDATION RE-STARTED.
--- NOTE | 2018-04-15 11:30 | NUR ---
Dr. Martinez visits and examines patient -orders received.
[2018-04-15] MEDS: SODIUM CHLORIDE 0.9% 1,000 ML IV SCH ×2 (11:51→20:00)
[2018-04-15] MEDS: PANTOPRAZOLE 40 MG/10 ML VIAL IV SCH (12:06)
[2018-04-15] MEDS: AMIODARONE HCL 200 MG TAB PO SCH (12:06)
[2018-04-15] MEDS: PROPOFOL 100 ML IV SCH ×2 (13:03→20:51)
--- NOTE | 2018-04-15 15:03 | NUR ---
Nutrition Follow-up Notes Wt.: 95.8 kg Pt continues to be intubated sedated with propofol @ 7.348 ml/hr providing 193 kcals form fats with no family by bedside. per pt records pt with metabolic acidosis, coma. pt continues to be NPO Est. Needs BW [id number] kcal (20-23 kcal/kgBW), 49-64 gms pro (0.6-0.8 gms/kgBW d/t elev ammonia severe hypoalb). Will continue to monitor pertinent labs and reassess nutrient need prn Labs: CREAT 1.6 H, GLU 276 H, CA 6.5 L, ANNY 5.5 H, ALB 2.4 L, AMMONIA 62 H (trending dwn) Skin: Cedric scale 11 high risk GI: Pt has no BM reported per beverage distiller. PES: Altered nutrition related lab values r/t current chronic medical condition aeb elev ammonia, hyperbil, severe hypoalb, elev creat Impaired swallowing r/t current medical condition aeb pt`s intubate sedated with order of NPO Will continue to monitor NPO status, skin status, pertinent labs and weight trend. F/u in 2-3 days. Rec.: 1.) consider alternate nutrition support if pt NPO > 48 hrs. If EN is choice of route consider Nutrihep @ 45 ml/hr per MD approval. 2) consider prostat 1 packet bid if ammonia improve. 3) advance diet as medically feasible. 4) continue current plan of care
--- NOTE | 2018-04-15 19:20 | NUR ---
OPEN ASSUMED CARE, FULL ASSESSMENT DONE; SEE INTERVENTIONS. VENT SETTINGS APRV, FIO2 30%. P-HIGH 32, P-LOW 0, T-HIGH 5, T-LOW 0.5. RR 12-22, SPONTANEOUS TV NOTED 600-700s, POX 100%. DIPRIVAN, VERSED, AND DOUBLE CONC. LEVO INFUSING PER IV SPREADSHEET. HR WANDERING ATRIAL PACEMAKER IN THE 70s WITH OCCASIONAL PVCs, SBP STABLE IN THE 110s. ORAL CARE AND REPOSITIONING DONE. CONTINUE CARE.
--- NOTE | 2018-04-15 21:16 | NUR ---
SEDATION VACATION STARTED AT THIS TIME.
--- NOTE | 2018-04-15 22:48 | NUR ---
WOUND CARE LEFT FA SKIN TEAR OPTIFOAMS SATURATED WITH SEROSANGUINEOUS DRAINAGE. CLEANSED SITES WITH WOUND CLEANSER, PATTED DRY WITH 4X4 GAUZE, APPLIED NON-ADHERENT OPTIFOAM AND SECURED WITH KERLIX.
[2018-04-16] VITALS (106 sets, daily range): BP systolic 82–135; BP diastolic 40–114
--- NOTE | 2018-04-16 00:21 | NUR ---
HUGH QURESHI AT BEDSIDE, NEW ORDERS: VENT SETTINGS APRV FIO2 30%, P-HIGH 30, P-LOW 0, T-HIGH 5, T-LOW 0.5. RT AT BEDSIDE FOR VENT CHANGES.
--- NOTE | 2018-04-16 00:23 | NUR ---
Respiratory note: NEW VENT ORDERS PER CHERISE VELA TO FOLLOW IN 1 HOUR
[2018-04-16] MEDS: PHENYLEPHRINE INJ 40 MG in SODIUM CHL 0.9% 250 ML IV SCH ×2 (01:02→12:56)
--- NOTE | 2018-04-16 03:01 | NUR ---
CARES/SEDATION FULL BATH AND LINEN CHANGE DONE. NO NEW SKIN ISSUES ASSESSED. WOUND CARE PERFORMED TO LEFT ARM AGAIN D/T SATURATED DSG. PROPOFOL TITRATED OFF AT THIS TIME, VITAL SIGNS STABLE. HR WAP IN THE 70s WITH OCCASIONAL PVCs, RR 11, POX 100%, SBP 110s WITH DOUBLE CONC. LEVO INFUSING PER IV SPREADSHEET. CONTINUE CARE.
[2018-04-16] MEDS: SODIUM CHLORIDE 0.9% 1,000 ML IV SCH ×3 (03:45→16:00)
[2018-04-16 04:41] LABS: Basophils # (auto) 0 uL; Basophils % (auto) 0.3 % (0.0-2.0); Eosinophils # (auto) 0.1 uL; Eosinophils % (auto) 1.1 % (0.0-7.0); Hematocrit 30.1 % (36.0-46.0); Hemoglobin 9.8 g/dL (12.2-16.2); Lymphocytes # (auto) 2.1 uL; Lymphocytes % (auto) 15.7 % (10.0-50.0); Mean Corpuscular Hemoglobin 31.9 pg (28.0-32.0); Mean Corpuscular Hgb Conc. 32.6 g/dL (32.0-36.0); Mean Corpuscular Volume 97.9 fL (80.0-100.0); Monocytes # (auto) 0.7 uL; Monocytes % (auto) 5.6 % (0.0-12.0); Neutrophils # (auto) 10.2 uL; Neutrophils % (auto) 77.3 % (37.0-80.0); Nucleated Red Blood Cells % 0.2 %; Platelet Count (auto) 35 10^3/uL (140-450); Red Blood Cells 3.08 10^6/uL (4.0-5.20); Red Cell Distribution Width 18.3 % (11.8-14.3); White Blood Cell 13.1 10^3/uL (4.4-10.8)
[2018-04-16 04:46] LABS: Albumin 2.1 g/dL (3.4-5.0); Potassium 4.2 mmol/L (3.5-5.1)
[2018-04-16 04:49] LABS: Bilirubin, Total 7.9 mg/dL (0.2-1.0); Total Protein 3.9 g/dL (6.4-8.2)
--- NOTE | 2018-04-16 05:17 | NUR ---
LABS HOSPITALIST PAGED REGARDING PLTs
[2018-04-16] MEDS: OCTREOTIDE ACETATE 100 MCG/ML VL SUBCUT SCH ×3 (05:30→21:32)
[2018-04-16] MEDS: LACTULOSE 20Gm/30ML SOLN PO SCH ×4 (05:30→23:27)
[2018-04-16] MEDS: PIPERACILLIN-TAZOB 3.375GM 100 ML IV SCH ×2 (05:30→11:47)
--- NOTE | 2018-04-16 05:39 | NUR ---
OUTPUTS URINE OUTPUT FOR SHIFT: 650 MLs STOOL OUTPUT FOR SHIFT: 1000 MLs
--- NOTE | 2018-04-16 06:39 | NUR ---
Respiratory note: RECEIVED PATIENT ON V20 V200 VENT ORALLY INTUBATED WITH AN 8.0 ETT SECURED VIA JOSE AT THE 21CM MARKING AT THE LIP, AND MECHANICALLY VENTILATED WITH THE CHARTED SETTINGS. SPO2 100%, LUNG SOUNDS ARE CLEAR T/O, NO SECRETIONS WHEN SUCTIONED. SKIN IS WARM/DRY TO THE TOUCH AND IS INTACT NEAR JOSE SITE. THERE IS A NGT IN THE RIGHT NARE AND IS SECURED TO THE ETT, A TRIPLE LUMEN CENTRAL LINE IS PLACED IN THE RIGHT IJ AND IS PATENT. BILATERAL UPPER EXTREMITIES HAVE +2 PITTING EDEMA, AND THE LEFT ARE HAS A GAUZE WRAP FROM ELBOW TO WRIST. STOMACH IS SLIGHTLY HARD TO THE TOUCH. BILATERAL LOWER EXTREMITIES SHOW +2 PITTING EDEMA AND HAVE SEQUENTIALS IN PLACE AND OPERATIONAL. PATIENT IS UNRESPONSIVE TO BOTH VERBAL/TACTILE STIMULI AND IS OFF ALL SEDATION. NO NEW AM CXR TO ASSESS AT THIS TIME. PATIENT IS RESTING COMFORTABLY AND TOLERATING VENT WELL, NO CHANGES MADE. VENT PLUGGED INTO RED OUTLET AND ALL ALARMS ARE SET AND AUDIBLE. WILL CONTINUE TO ASSESS PATIENT WELL VENTILATOR FUNCTION.
--- NOTE | 2018-04-16 07:29 | NUR ---
REPORT CARE ENDORSED TO MARY MURILLO
--- NOTE | 2018-04-16 07:30 | NUR ---
ASSESS- PT. LYING IN BED ON VENT SIZE # 8.0 ET, 21 AT THE LIP, APRV MODE WITH T HIGH-5, T LOW-0.5, P HIGH-30, P LOW-0, FIO2-30%. LUNGS CLEAR ANNY. INSPIRATORY AND EXPIRATORY. PT. HAS HYPOACTIVE GAG/COUGH REFLEX. OFF SEDATION. PUPILS 3 AND BRISK ANNY. OFF SEDATION. RESPONDS TO PAINFUL/TACTILE STIMULI. NO MOVEMENT OF EXTREMITIES SEEN. SCLEREDEDEMA EYES ANNY., JAUNDICE COLOR EYES ANNY. ABD. FIRM, LG. BOWEL SOUNDS ALL FOUR QUADRANTS. FLEXISEAL TO GRAVITY WITH LIQUID GREEN STOOL. F/C TO GRAVITY WITH LT. HAKEEM URINE. RADIAL PULSES WEAK, PALPABLE ANNY. PEDAL PULSES WEAK, PALPABLE ANNY. 3 PLUS EDEMA UPPER EXTREMITIES AND HANDS ANNY. ARMS WEEPING ANNY., WRAPPED IN CHUX. 2 PLUS EDEMA LE ANNY. LABIA SWOLLEN. SCD'S ANNY. LE. SKIN TEAR TO LT. FOREARM TIMES TWO WITH OPTIFOAM DSG. D/I. ABRASION RT. ANKLE OPEN TO AIR, NO DRAINAGE. TLC RT. IJ INTACT. ON LEVOPHED GTT. AT 15 MCG. SBP 100'S TO ONE TENS. NGT RT. NARE INTACT. PT. IS NPO.
--- NOTE | 2018-04-16 08:25 | NUR ---
DR. JEFF Provider/Hospitalist at bedside.
--- NOTE | 2018-04-16 08:30 | NUR ---
DR. Keith FONTANA Provider/Hospitalist at bedside. GAVE UPDATE ON PT. SPOKE WITH PT'S. AT BS.
--- NOTE | 2018-04-16 09:30 | NUR ---
Family updated on pt status Family of KAMNIKKO updated on patient's status and condition. All questions and concerns addressed. verbalized understanding. VISITING AT THE BS.
[2018-04-16] MEDS: FLUCONAZOLE 200MG/100ML 100 ML IV SCH ×2 (09:45→11:47)
[2018-04-16] MEDS: PANTOPRAZOLE 40 MG/10 ML VIAL IV SCH (09:45)
[2018-04-16] MEDS: NOREPINEPHRINE BITARTRATE 16 MG in D5W 5% 250 ML IV SCH (09:45)
[2018-04-16] MEDS: AMIODARONE HCL 200 MG TAB PO SCH (09:46)
--- NOTE | 2018-04-16 10:30 | NUR ---
Called/paged Dr. PATE called re: . Continue care. DR. FONTANA SAID TO CALL PHARMACIST AND SEE RECOMMENDATION. CALLED PHARMACIST AND INFORMED AND SAID WILL DO A REVIEW.
--- NOTE | 2018-04-16 10:55 | NUR ---
DR. JIMÉNEZ Provider/Hospitalist at bedside.
[2018-04-16] MEDS: MIDAZOLAM DRIP 50 mg/50mL 50 ML IV SCH (11:17)
[2018-04-16 12:15] LABS: Hepatitis B Surface Antigen Negative (Negative)
[2018-04-16] MEDS ORDERED: LEVOFLOXACIN 750MG 150 ML IV ONE (12:15)
[2018-04-16 12:16] LABS: Hepatitis A Ab IgM Negative
[2018-04-16 12:17] LABS: Hepatitis B Core IgM Negative
[2018-04-16 12:19] LABS: Hepatitis C Antibody Negative (Negative)
--- NOTE | 2018-04-16 13:35 | NUR ---
DR. LÓPEZ Provider/Hospitalist at bedside.
--- NOTE | 2018-04-16 15:00 | NUR ---
SBP UPPER 100'S TO ONE TEENS. TITRATING LEVOPHED GTT. DOWN SLOWLY TO KEEP SBP>90. MONITORING BP.
--- NOTE | 2018-04-16 18:00 | NUR ---
PT. HAS BEEN OFF SEDATION ALL DAY. NO EYE OPENING. NO MOVEMENT OF EXTREMITIES SEEN. DOES NOT FOLLOW ANY COMMANDS. PT. HAS GAG/COUGH REFLEX. PUPILS 3 AND BRISK ANNY.
--- NOTE | 2018-04-16 19:30 | NUR ---
OPEN ASSUMED CARE, FULL ASSESSMENT DONE; SEE INTERVENTIONS. PT OFF SEDATION, HYPOACTIVE COUGH/GAG NOTED, NO EYE OPENING NOTED, SHE DOES WITHDRAWAL TO PAIN. DOUBLE CONC. LEVO INFUSING AT 10 MCGs, SBP 110s. HR AFIB IN THE 70s. VENT SETTINGS: APRV 30% FIO2, P-HIGH 30, P-LOW 0, T-HIGH 5, T-LOW 0.5. SPONT RATE NOTED 11-15, SPONT TV 600-700, POX 100%. BLOODY ORAL SECRETIONS NOTED, WILL MINIMIZE ORAL CARE. ELMORE AND FLEXI-SEAL DRAINING TO GRAVITY. ANNY UPPER EXT WEAPING NOTED, ANASARCA THROUGHOUT. VITAL SIGNS STABLE. REPOSITIONING DONE. CONTINUE CARE.
--- NOTE | 2018-04-16 23:30 | NUR ---
HUGH QURESHI AT BEDSIDE DISCUSSING POC WITH PT'S . NO NEW ORDERS RECEIVED.
[2018-04-17] VITALS (105 sets, daily range): BP systolic 82–131; BP diastolic 47–97
[2018-04-17] MEDS: SODIUM CHLORIDE 0.9% 1,000 ML IV SCH ×3 (00:53→19:57)
--- NOTE | 2018-04-17 03:45 | NUR ---
WOUND CARE DSG CHANGED TO LEFT ARM. CLEANSED WITH WOUND CLEANSER, APPLIED NON-ADHERENT OPTIFOAM AND SECURED WITH KERLIX. ALL EXT REMAIN ELEVATED AND OFFLOADED ON PILLOWS.
--- NOTE | 2018-04-17 04:17 | NUR ---
CARDIO PT. NOTED TO CONVERT TO SR IN THE 80s WITH PACs.
[2018-04-17 05:16] LABS: Albumin 1.9 g/dL (3.4-5.0); BUN/Creatinine Ratio 11.3; Calcium 6.9 mg/dL (8.5-10.1); Potassium 3.7 mmol/L (3.5-5.1)
[2018-04-17 05:19] LABS: Bilirubin, Total 9.2 mg/dL (0.2-1.0); Total Protein 3.6 g/dL (6.4-8.2)
[2018-04-17 05:39] LABS: Basophils # (auto) 0 uL; Eosinophils # (auto) 0.1 uL; Monocytes # (auto) 0.6 uL; Monocytes % (auto) 7.2 % (0.0-12.0)
[2018-04-17 05:41] LABS: Basophils % (auto) 0.3 % (0.0-2.0); Eosinophils % (auto) 1.3 % (0.0-7.0); Hematocrit 29.2 % (36.0-46.0); Lymphocytes # (auto) 1.7 uL; Lymphocytes % (auto) 19.6 % (10.0-50.0); Mean Corpuscular Hgb Conc. 34.1 g/dL (32.0-36.0); Mean Corpuscular Volume 99.6 fL (80.0-100.0); Neutrophils # (auto) 6.1 uL; Neutrophils % (auto) 71.6 % (37.0-80.0); Nucleated Red Blood Cells % 0.3 %; Red Blood Cells 2.93 10^6/uL (4.0-5.20); Red Cell Distribution Width 19.2 % (11.8-14.3); White Blood Cell 8.5 10^3/uL (4.4-10.8)
[2018-04-17 05:44] LABS: Platelet Count (auto) 29 10^3/uL (140-450)
--- NOTE | 2018-04-17 06:10 | NUR ---
PLATELETS HOSPITALIST MADE AWARE OF PLT COUNT, NO NEW ORDERS RECEIVED.
--- NOTE | 2018-04-17 07:30 | NUR ---
REPORT: REPORT RECEIVED FROM FORM BUILDING SUPERVISOR RN TO RESUME CARE OF PT.
[2018-04-17] MEDS: LACTULOSE 20Gm/30ML SOLN PO SCH ×3 (07:46→17:58)
[2018-04-17] MEDS: OCTREOTIDE ACETATE 100 MCG/ML VL SUBCUT SCH ×3 (07:46→23:04)
--- NOTE | 2018-04-17 08:00 | NUR ---
OPEN: ASSESSMENT COMPLETE. SEE NURSING FLOW SHEET FOR UPDATED DETAILS. PT IS NON-VERBAL, NOT RESPONDING TO PAINFUL OR VERBAL STIMULATION, INTUBATED WITH NO SEDATION AT TIME, PUPILS EQUAL AND 3, BRISK TO LIGHT. HYPOACTIVE COUGH AND GAG REFLEX, GRIMACING ON ORAL CARE AND DEEP ETTUBE SUCTIONING. ON VENTILATOR WITH AN ETTUBE 8.0/21LIP LINE. SETTING OS APRV T HIGH 5.0, T LOW 0.5, P HIGH 30 P LOW 0, 30% FI02. NGT TO RIGHT NARE THAT IS CLAMPED. ELMORE CATHETER DRAINING URINE TO GRAVITY. SCD'S IN PLACE ON BILATERAL LOWER EXTREMITIES. RECTAL TUBE IN PLACE DRAINING LIQUID GREEN STOOL TO GRAVITY. 3LUMEN CENTRAL LINE TO RIGHT IJ RUNNING LEVOPHED GTT AT 12MCG/MIN AND .9NS AT 125ML/HR. ALL MONITORS HOOKED UP TO PT FOR CONTINUOUS MONITORING. SHARED POC WITH PT BUT UNABLE TO VERBALIZE ANY UNDERSTANDING AT TIME. CONTINUE CARE FOR SHIFT.
--- NOTE | 2018-04-17 09:00 | NUR ---
MD VISIT: DR. FONTANA IN AT BEDSIDE. UPDATED ON PT STATUS AND AWARE OF CURRENT FINDINGS. AWARE THAT PT HAS BEEN NPO SINCE ADMISSION. NEW ORDERS TO BEGIN TPN THIS EVENING. PLAN TO CARRY OUT ALL OTHER ORDERS PLACED.
--- NOTE | 2018-04-17 09:30 | NUR ---
MD VISIT: DR. JIMÉNEZ IN AT BEDSIDE. UPDATED ON PT STATUS. AWARE OF LOW ALBUMIN LEVELS AT TIME AND NO NEW ORDERS RECEIVED. PLAN TO CARRY OUT ANY ADDITIONAL ORDERS.
[2018-04-17] MEDS: PHENYLEPHRINE INJ 40 MG in SODIUM CHL 0.9% 250 ML IV SCH (10:22)
[2018-04-17] MEDS: PANTOPRAZOLE 40 MG/10 ML VIAL IV SCH (10:30)
[2018-04-17] MEDS: FLUCONAZOLE 200MG/100ML 100 ML IV SCH ×2 (10:30→11:30)
[2018-04-17] MEDS: AMIODARONE HCL 200 MG TAB PO SCH (10:30)
--- NOTE | 2018-04-17 10:40 | NUR ---
MD VISIT: DR. JEFF IN AT BEDSIDE. UPDATED ON PT STATUS AND AWARE OF CURRENT FINDINGS.
--- NOTE | 2018-04-17 10:48 | NUR ---
MD CALL: DR. QURESHI CALLED. UPDATED ON PT STATUS AND AWARE OF CURRENT FINDINGS. UPDATED ON ABG VALUES, SETTINGS ON VENTILATOR AND ALL STATUS. NEW ORDERS RECEIVED TO MAKE VENT CHANGES AND OBTAIN AN ABG IN 1HR. WILL NOTIFY RT.
--- NOTE | 2018-04-17 10:49 | NUR ---
RT: RT PAGED FOR VENT CHANGES. WAITING FOR CALL BACK.
[2018-04-17] MEDS ORDERED: DEXTROSE (50%) 50ML SYRG IV PRN (11:00)
[2018-04-17] MEDS ORDERED: TPN PER PHARMACY 0 ML IV SCH (11:00)
[2018-04-17] MEDS: LEVOFLOXACIN 750MG 150 ML IV SCH (11:00)
[2018-04-17] MEDS: NOREPINEPHRINE BITARTRATE 16 MG in D5W 5% 250 ML IV SCH (11:10)
[2018-04-17] MEDS: ACCU-CHEK COMFORT CURVE STRIP VI SCH ×2 (11:47→17:58)
[2018-04-17] MEDS: InsuLIN REG 1unit/0.01ml Soln (100units/ml) SC SCH ×2 (11:50→17:58)
[2018-04-17 12:10] LABS: Magnesium 1.4 mg/dL (1.6-2.6); Phosphorus 1.7 mg/dL (2.5-4.90)
--- NOTE | 2018-04-17 12:28 | NUR ---
MD CALL: CALLED DR. QURESHI AND UPDATED ON CURRENT ABG VALUES. DR. QURESHI OK WITH CURRENT SETTINGS.
--- NOTE | 2018-04-17 12:36 | NUR ---
PICC LINE: PICC LINE RN IN AT BEDSIDE. Addendum: 04/17/18 at 1236 by Freda Moreira RN WRONG PT NOTE. PT IS NOT GETTING A PICC LINE .
[2018-04-17] MEDS: PROPOFOL 100 ML IV SCH (12:46)
[2018-04-17] MEDS ORDERED: MAGNESIUM SULFATE 1GM/100ML 100 ML IV ONE (14:45)
[2018-04-17] MEDS ORDERED: POTASSIUM PHOSPHATE 22 MEQ in SODIUM CHL 0.9% 100 ML IV ONE (14:45)
[2018-04-17] MEDS: MIDAZOLAM DRIP 50 mg/50mL 50 ML IV SCH (15:30)
--- NOTE | 2018-04-17 15:41 | NUR ---
Nutrition Follow-up Notes Wt.: 97.7 kg Pt continues to be intubated sedated off propofol when rounded this am with no family by bedside. pt continues to be NPO and to be initiated on PN support fro tonight per nursing. pt to haev PN support @ 43 ml/hr providing 1050 kcals and 50 gm proteins 850 NCP Est. Needs BW [id number] kcal (20-23 kcal/kgBW), 49-64 gms pro (0.6-0.8 gms/kgBW d/t elev ammonia severe hypoalb). Will continue to monitor pertinent labs and reassess nutrient need prn Labs: GLU 143 H, ANNY 9.2 H, AMMONIA 35 H (trending dwn), ALB 1.9 L, CA 6.9 L. CREAT 1.24 H Skin: Cedric scale 10 high risk pt with multiple skin tears GI: Pt had 400 ml BM today diarr per clinical documentation consultant. PES: Altered nutrition related lab values r/t current chronic medical condition aeb elev ammonia, hyperbil, severe hypoalb, elev creat Impaired swallowing r/t current medical condition aeb pt`s intubate sedated with order of NPO Will continue to monitor NPO status, PN tolerance, skin status, pertinent labs and weight trend. F/u in 2-3 days. Rec.: 1.) Advance PN support to meet > 75% of needs. 2) If EN is choice of route consider Nutrihep @ 45 ml/hr per MD approval. 3) consider prostat 1 packet bid if ammonia improve. 4) advance diet as medically feasible. 5) continue current plan of care
--- NOTE | 2018-04-17 17:00 | NUR ---
LINEN CHANGE: LINENS CHANGED, SKIN CARE DONE AND PT REPOSITIONED IN BED.
[2018-04-17] MEDS: IPRATROPIUM BROM 0.5 MG/2.5ML INH SOL NEB PRN (18:53)
[2018-04-17] MEDS: ALBUTEROL SULF 2.5 MG/0.5ML(0.5%) NEB SOLN NEB PRN (18:53)
--- NOTE | 2018-04-17 19:30 | NUR ---
REPORT: REPORT GIVEN TO HOME CHILD CARE PROVIDER RN TO RESUME CARE OF PT.
[2018-04-17] MEDS ORDERED: TPN PER PHARMACY IV NR ×8 (20:00)
[2018-04-18] VITALS (100 sets, daily range): BP systolic 85–159; BP diastolic 51–101
[2018-04-18] MEDS: InsuLIN REG 1unit/0.01ml Soln (100units/ml) SC SCH ×5 (00:05→23:53)
[2018-04-18] MEDS: PHENYLEPHRINE INJ 40 MG in SODIUM CHL 0.9% 250 ML IV SCH ×2 (03:02→19:34)
[2018-04-18] MEDS: SODIUM CHLORIDE 0.9% 1,000 ML IV SCH ×2 (03:45→15:17)
[2018-04-18 04:07] LABS: Basophils # (auto) 0 uL; Eosinophils # (auto) 0.1 uL; Hemoglobin 9.4 g/dL (12.2-16.2); Lymphocytes # (auto) 2.4 uL; Monocytes # (auto) 0.7 uL
[2018-04-18 04:10] LABS: Basophils % (auto) 0.3 % (0.0-2.0); Eosinophils % (auto) 1.7 % (0.0-7.0); Hematocrit 28.5 % (36.0-46.0); Lymphocytes % (auto) 28.8 % (10.0-50.0); Mean Corpuscular Hemoglobin 33.1 pg (28.0-32.0); Mean Corpuscular Hgb Conc. 32.9 g/dL (32.0-36.0); Mean Corpuscular Volume 100.5 fL (80.0-100.0); Monocytes % (auto) 8.4 % (0.0-12.0); Neutrophils % (auto) 60.8 % (37.0-80.0); Nucleated Red Blood Cells % 0.1 %; Red Blood Cells 2.84 10^6/uL (4.0-5.20); Red Cell Distribution Width 19.8 % (11.8-14.3); White Blood Cell 8.3 10^3/uL (4.4-10.8)
--- NOTE | 2018-04-18 04:28 | NUR ---
HOSPITALIST PAGED REGARDING AM LABS
[2018-04-18 04:41] LABS: Alanine Aminotransferase 23 U/L (13-56); Albumin 1.7 g/dL (3.4-5.0); Anion Gap 9 (5-15); Aspartate Aminotransferase 43 U/L (15-37); Blood Urea Nitrogen 13 mg/dL (7-18); Calcium 6.9 mg/dL (8.5-10.1); Carbon Dioxide 22 mmol/L (21-32); Chloride 116 mmol/L (98-107); Glucose 225 mg/dL (74-106); Magnesium 1.8 mg/dL (1.6-2.6); Potassium 3.6 mmol/L (3.5-5.1); Sodium 147 mmol/L (136-145)
[2018-04-18 04:45] LABS: Alkaline Phosphatase 124 U/L (45-117); BUN/Creatinine Ratio 8.9; Bilirubin, Total 6.7 mg/dL (0.2-1.0); GFR African American 47 mL/min; GFR Non-African American 39 mL/min; Phosphorus 2.4 mg/dL (2.5-4.90); Pre Albumin < 3.0 mg/dL (20.0-40.0); Total Protein 3.5 g/dL (6.4-8.2); Triglycerides 85 mg/dL (< 150)
[2018-04-18] MEDS ORDERED: ALBUMIN 25% 100 ML IV ONE (06:00)
[2018-04-18 06:05] LABS: Platelet Count (auto) 33 10^3/uL (140-450)
[2018-04-18] MEDS: LACTULOSE 20Gm/30ML SOLN PO SCH ×5 (06:08→23:58)
[2018-04-18] MEDS: ACCU-CHEK COMFORT CURVE STRIP VI SCH ×5 (06:19→23:53)
[2018-04-18] MEDS: OCTREOTIDE ACETATE 100 MCG/ML VL SUBCUT SCH ×3 (06:43→22:38)
--- NOTE | 2018-04-18 08:02 | NUR ---
CALL RECEIVED FROM PULMONOLOGY DR QURESHI REQUESTED MORTGAGE LOAN COORDINATOR RN TO CALL WITH MORNING ABG RESULTS - IN REPORT, SOLANGE NOTIFIED THIS NURSE THAT R.T. WAS UNABLE TO DRAW AGB AND WAS GOING TO HAVE ANOTHER R.T. STAFF DRAW PATIENT, THEREFORE, RESULTS NOT AVAILABLE. DR QURESHI WAS NOTIFIED OF THIS AND PROVIDED WITH 04/17/18 @ 12:11 ABG RESULTS AND CURRENT VASOPRESSOR RATE. NO ORDERS AT THIS TIME. WILL NOTIFY DR QURESHI ONCE NEW ABG RESULTS BECOME AVAILABLE.
[2018-04-18] MEDS: FLUCONAZOLE 200MG/100ML 100 ML IV SCH ×2 (10:38→10:50)
[2018-04-18] MEDS: PANTOPRAZOLE 40 MG/10 ML VIAL IV SCH (10:38)
[2018-04-18] MEDS: AMIODARONE HCL 200 MG TAB PO SCH (10:38)
[2018-04-18] MEDS: NOREPINEPHRINE BITARTRATE 16 MG in D5W 5% 250 ML IV SCH (10:39)
[2018-04-18] MEDS ORDERED: DEXTROSE (50%) 50ML SYRG IV SCH (12:00)
[2018-04-18] MEDS ORDERED: POTASSIUM PHOSPHATE 22 MEQ in SODIUM CHL 0.9% 100 ML IV ONE (12:30)
[2018-04-18] MEDS: PROPOFOL 100 ML IV SCH (12:46)
[2018-04-18] MEDS: MIDAZOLAM DRIP 50 mg/50mL 50 ML IV SCH (12:46)
[2018-04-18] MEDS: LEVOFLOXACIN 750MG 150 ML IV SCH (15:16)
[2018-04-18] MEDS: BUMETANIDE (0.25MG/ML) 4 ML VIAL IV SCH ×2 (15:17→18:48)
--- NOTE | 2018-04-18 17:50 | NUR ---
FAMILY AT BEDSIDE PATIENT'S SPOUSE BARB AT BEDSIDE AND UPDATED ON PATIENT'S STATUS. ALL QUESTIONS AND CONCERNS ADDRESSED, BARB VERBALIZED UNDERSTANDING.
[2018-04-18] MEDS ORDERED: TPN PER PHARMACY IV NR ×10 (20:00)
--- NOTE | 2018-04-18 20:09 | NUR ---
OPEN. REPORT RECEIVED FROM PAKO ANDERSON, ASSUMED CARE OF PT. VITAL SIGNS STABLE AT THIS TIME, SEE INTERVENTIONS FOR INITIAL ASSESSMENT. WILL CONTINUE TO MONITOR PT.
--- NOTE | 2018-04-18 20:10 | NUR ---
SMALL PRESSURE AREA NOTED TO RIGHT NARE. NGT REMOVED, WOUND PHOTO COLLECTED AT THIS TIME. NEW OGT PLACED. CXR ORDERED TO VERIFY PROPER PLACEMENT.
[2018-04-19] VITALS (106 sets, daily range): BP systolic 74–147; BP diastolic 42–92
[2018-04-19] MEDS: SODIUM CHLORIDE 0.9% 1,000 ML IV SCH (02:00)
[2018-04-19 04:22] LABS: Calcium 7.1 mg/dL (8.5-10.1); Magnesium 1.7 mg/dL (1.6-2.6); Potassium 3.2 mmol/L (3.5-5.1)
[2018-04-19 04:25] LABS: BUN/Creatinine Ratio 9.2; Bilirubin, Total 5.1 mg/dL (0.2-1.0); Phosphorus 2.4 mg/dL (2.5-4.90); Total Protein 3.7 g/dL (6.4-8.2)
[2018-04-19] MEDS: LACTULOSE 20Gm/30ML SOLN PO SCH ×3 (06:09→18:26)
[2018-04-19] MEDS: OCTREOTIDE ACETATE 100 MCG/ML VL SUBCUT SCH ×3 (06:09→22:00)
[2018-04-19] MEDS: ACCU-CHEK COMFORT CURVE STRIP VI SCH ×3 (06:10→18:30)
[2018-04-19] MEDS: InsuLIN REG 1unit/0.01ml Soln (100units/ml) SC SCH ×3 (06:10→18:30)
[2018-04-19] MEDS: BUMETANIDE (0.25MG/ML) 4 ML VIAL IV SCH ×2 (06:10→18:26)
--- NOTE | 2018-04-19 07:20 | NUR ---
REPORT REPORT RECEIVED FROM JOSE RNSOLANGE. PT RESTING IN BED WITH EYES CLOSED, ON THE VENTILATOR , NO SEDATION WITH VSS. CONTINUE TO MONITOR.
[2018-04-19] MEDS ORDERED: POTASSIUM PHOSPHATE 44 MEQ in D5W 5% 250 ML IV ONE (08:15)
--- NOTE | 2018-04-19 08:30 | NUR ---
PT TEACHING CA UNABLE TO BENEFIT FROM PT TEACHING AT THIS TIME SHE IS NOT RESPONSIVE. Addendum: 04/19/18 at 2028 by Kerry Colon RN Amended: Links added.
--- NOTE | 2018-04-19 08:45 | NUR ---
ASSESSMENT PT LAYING IN BED WITH EYES CLOSED. DOES NOT RESPOND TO VERBAL STIMULI BUT WITHDRAWS TO PAIN. PUPILS 3 AND BRISK. SPONTANEOUS MOVEMENT OF LEFT LEG NOTED BUT DOES NOT FOLLOW ANY COMMANDS. ON THE VENTILATOR IN APRV MODE WITH 30% FIO2, T LOW 0.5, T HIGH 5.0, P HIGH 28AND P LOW 0. LUNGS CLEAR THROUGHOUT. SUCTIONED FOR SMALL AMOUNT OF THIN CLEAR CVIA ETT AND THICK CLEAR, ORALLY, MODERATE. TELE SR 69. PALPABLE PULSES TO ALL EXTREMITIES WITH PITTING EDEMA NOTED, +2 TO L ARM AND BLE AND +3 TO RIGHT ARM AND HAND. WEEPING STRAW COLORED FLUID FROM RIGHT ARM. SCDS TO BLE. ABD ROUND AND WITH HYPOACTIVE BOWEL SOUNDS. OGT IN PLACE AT 58 AT THE NARES WITH 5 ML CLEAR RESIDUAL NOTED. FLEXISEAL IN PLACE DRAINING LIQUID GREEN FLUID. ELMORE CATHETER DRAINING CLEAR HAKEEM URINE. TURNED FOR COMFORT TO HER RIGHT SIDE. SKIN CLEAR EXCEPT FOR SCABBED AREA NOTED TO RIGHT INNER SIDE OF NARES, PREVIOUS NGT SITE.
[2018-04-19] MEDS ORDERED: POTASSIUM PHOSPHATE 22 MEQ in SODIUM CHL 0.9% 100 ML IV ONE (09:00)
--- NOTE | 2018-04-19 09:00 | NUR ---
RECEIVED A PHONE CALL FROM DR QURESHI, UPDATED HIM ON PT'S CONDITION. NO NEW ORDERS RECEIVED.
--- NOTE | 2018-04-19 09:00 | NUR ---
MD VISIT PTT SEEN ADN EXAMINED BY DR Genesis FONTANA. UPDAETD HIM ON THE PT'S CURRENT CONDITION.
--- NOTE | 2018-04-19 09:22 | NUR ---
bp of 74/42 at 0915 and recycled at 86/60. increased levophed from 8 to 9 mcg. continue to monitor bp.
[2018-04-19] MEDS: LEVOFLOXACIN 750MG 150 ML IV SCH (10:10)
[2018-04-19] MEDS: PANTOPRAZOLE 40 MG/10 ML VIAL IV SCH (10:24)
[2018-04-19] MEDS: AMIODARONE HCL 200 MG TAB PO SCH (10:25)
[2018-04-19] MEDS: NOREPINEPHRINE BITARTRATE 16 MG in D5W 5% 250 ML IV SCH (11:30)
--- NOTE | 2018-04-19 11:38 | NUR ---
Nutrition Follow-up Notes Wt.: 99.9 kg Pt remains intubated, non-sedated, no immediate family member at bedside except for RN during rounds earlier. Pt's currently NPO, on TPN @ 54 ml/hr providing 1460 kcal, 60 gms proteins, 1220 NPCs and 14% Fat. Pt with adequate PN support d/t high initiation rate delivery of concentrated formula aeb current PN infusion meets 78% to 90% of est caloric needs and 74% to 93% of est protein needs. Noted pt's to receive tonight another TPN @ 65ml/hr providing 1770 kcal, 70 gms proteins, 1490 NPCs and 17% Fat. Est. Needs BW [id number] kcal (20-23 kcal/kgBW), 64-81 gms pro (0.8-1.0 gms/kgBW d/t elev ammonia severe hypoalb). Will continue to monitor pertinent labs and reassess nutrient need prn Labs: Gluc 151 H, K 3.2 L, BUN 15 L, Cr 1.31 H, Ca 7.1 L, Phos 2.4 L, Tpro 3.7 L, Alb 2.0 L, Tot ann marie 5.1 H Skin: Cedric scale 10, high risk, pt with multiple skin tears on left arms, corner of lip per pin sorter and bagger. Pls refer to safety belt installer's notes 04/15/18 for further details re: tx plans. GI: Pt had 500 ml stool output thi s morning per pin sorter and bagger. PES: Altered nutrition related lab values r/t current chronic medical condition aeb elev ammonia, hyperbil, severe hypoalb, elev creat Impaired swallowing r/t current medical condition aeb pt`s intubate sedated with order of NPO Will continue to monitor NPO status, PN tolerance, skin status, pertinent labs and weight trend. F/u in 2 to 3 days. Rec.: 1.) If still NPO, continue with PN support that meets at least 75% of needs. 2.) Consider EN support with formula choice of Nutrihep @ 45 ml/hr, if medically appropriate, per MD approval. 3.) Consider Prostat 1 packet BID if ammonia improve. 4.) Advance gradually to oral diet when medically feasible. 5.) Refer to RD for further nutrition educ. and weight monitoring upon discharge. 6.) Continue current plan of care.
[2018-04-19] MEDS: PHENYLEPHRINE INJ 40 MG in SODIUM CHL 0.9% 250 ML IV SCH (11:51)
[2018-04-19] MEDS: PROPOFOL 100 ML IV SCH (11:52)
[2018-04-19] MEDS: MIDAZOLAM DRIP 50 mg/50mL 50 ML IV SCH (11:53)
[2018-04-19] MEDS: FLUCONAZOLE 200MG/100ML 100 ML IV SCH ×2 (11:53→13:02)
--- NOTE | 2018-04-19 14:15 | NUR ---
WOUND CARE NOTE: Wound care in to see patient for skin integrity monitoring. Patient continue resting in ICU premium bed in RM. 108. She's intubated, sedated and mechanically ventilated. Patient appears to be in no pain using Devi Luque Faces Pain Scale. Her current Cedric score is 10. Patient's bilateral feet remain intact, with blanchable mild redness. Patient developed 0.3x0.5cm scabbed wound/abrasion to R nare. Bedside nurse took photograph of patient's skin issue for reference. Staff is suspecting due to NG Tube. NG Tube is off now and patient is on TPN. Scabbed wound is dry, no drainage/odor noted. Cleansed with NS moistened gauze and applied Thera honey gel per MD order. NO other wound noted, Repositioned for comfort. Patient tolerated well. RECOMMENDATION: Daily/PRN cleaning and application of Thera honey gel to R nare per MD order, continuation of all other wound care orders prescribed by MD, continue with skin/wound plan of care, continue monitoring by wound care while patient is hospitalized. Addendum: 04/19/18 at 1917 by Rhea Esparza RN Amended: Links added.
[2018-04-19] MEDS: SOD CHL 0.45% WITH 20MEQ KCL 1,000 ML IV SCH (15:06)
--- NOTE | 2018-04-19 15:40 | NUR ---
bp of 78/50 after a few minutes rechecked and is 78/52. increased levophed to 9 mcg. continue to monitor.
--- NOTE | 2018-04-19 15:40 | NUR ---
TLC DRESSING CHANGE/SKIN TEAR CHANGED TLC DRESSING TO RIJ SITE. PT NOTED TO HAVE SKIN TEAR UNDER LOWER EDGE OF DRESSING. AREA IS PINK AND LOOKS DRY. CLEANED WITH WOUND ENGINEERING TECH, PHOTO TAKEN, APPLICATIONS PACKAGER, YOVANI, NOTIFIED, AND THERAHONEY AND OPTIFOAM DRESSING APPLIED.
[2018-04-19 17:56] LABS: BUN/Creatinine Ratio 9.9; Potassium 3.5 mmol/L (3.5-5.1)
--- NOTE | 2018-04-19 18:20 | NUR ---
DRESSING TO LEFT FOREARM IS SATURATED WITH STRAW COLORED FLUID. DRESSING REMOVE , CLEANED 2 SKIN TEARS WITH WOUND NURSE HEAD, PATTED DRY WITH GAUZE, APPLIED OPTIFOAM PADS X2 AND WRAPPED WITH KERLIX AND SECURED WITH TAPE. TOLERATED WELL BY PT.
[2018-04-19] MEDS: POTASSIUM CHL 20MEQ/100ML 100 ML IV SCH ×2 (18:27→21:00)
--- NOTE | 2018-04-19 19:30 | NUR ---
REPORT GIVEN TO YAZMIN GARCIA RN.
[2018-04-19] MEDS ORDERED: TPN PER PHARMACY IV NR ×10 (20:00)
--- NOTE | 2018-04-19 20:00 | NUR ---
VENT SETTING APRV HIGH 5, LOW .05
[2018-04-20] VITALS (97 sets, daily range): BP systolic 75–136; BP diastolic 42–83
[2018-04-20] MEDS: SOD CHL 0.45% WITH 20MEQ KCL 1,000 ML IV SCH (02:30)
[2018-04-20 04:20] LABS: Red Blood Cells 2.73 10^6/uL (4.0-5.20)
[2018-04-20 04:22] LABS: Hematocrit 27.5 % (36.0-46.0); Mean Corpuscular Hemoglobin 32.9 pg (28.0-32.0); Mean Corpuscular Hgb Conc. 32.7 g/dL (32.0-36.0); Mean Corpuscular Volume 100.6 fL (80.0-100.0); Platelet Count (auto) 22 10^3/uL (140-450); White Blood Cell 7.2 10^3/uL (4.4-10.8)
[2018-04-20 04:32] LABS: Albumin 1.8 g/dL (3.4-5.0); Calcium 6.9 mg/dL (8.5-10.1); Potassium 4.2 mmol/L (3.5-5.1)
[2018-04-20 04:34] LABS: Red Cell Distribution Width 20.2 % (11.8-14.3)
[2018-04-20 04:35] LABS: BUN/Creatinine Ratio 10.2; Basophils % (manual) 0 (0.0-2.0); Bilirubin, Total 4.4 mg/dL (0.2-1.0); Blast Cells 0; Promyelocytes % 0; Reactive Lymphocytes 0; Total Protein 3.6 g/dL (6.4-8.2)
[2018-04-20 04:44] LABS: Magnesium 1.6 mg/dL (1.6-2.6); Phosphorus 2.7 mg/dL (2.5-4.90)
[2018-04-20] MEDS: PHENYLEPHRINE INJ 40 MG in SODIUM CHL 0.9% 250 ML IV SCH ×2 (05:02→21:42)
[2018-04-20] MEDS: LACTULOSE 20Gm/30ML SOLN PO SCH ×4 (05:51→18:17)
[2018-04-20] MEDS: OCTREOTIDE ACETATE 100 MCG/ML VL SUBCUT SCH (06:00)
[2018-04-20] MEDS: BUMETANIDE (0.25MG/ML) 4 ML VIAL IV SCH (06:13)
[2018-04-20] MEDS: ACCU-CHEK COMFORT CURVE STRIP VI SCH ×4 (06:14→18:17)
[2018-04-20] MEDS: InsuLIN REG 1unit/0.01ml Soln (100units/ml) SC SCH ×4 (06:14→18:00)
--- NOTE | 2018-04-20 08:17 | NUR ---
calls - ABG results given - CXR ordered.
[2018-04-20 09:11] LABS: Band Neutrophils % (manual) 5; Eosinophils % (manual) 2 (0-7); Lymphocytes % (manual) 24 (10.0-50.0); Metamyelocytes % 1; Monocytes % (manual) 6 (0-12); Myelocytes % 1
[2018-04-20] MEDS ORDERED: ALBUMIN 25% 100 ML IV SCH (09:15)
[2018-04-20] MEDS: FLUCONAZOLE 200MG/100ML 100 ML IV SCH ×2 (10:12→11:30)
[2018-04-20] MEDS: PANTOPRAZOLE 40 MG/10 ML VIAL IV SCH (10:13)
[2018-04-20] MEDS: AMIODARONE HCL 200 MG TAB PO SCH (10:14)
--- NOTE | 2018-04-20 11:05 | NUR ---
Patient's visits - updated on patient condition - verbalizes understanding.
[2018-04-20] MEDS: NOREPINEPHRINE BITARTRATE 16 MG in D5W 5% 250 ML IV SCH ×2 (11:07→16:50)
[2018-04-20] MEDS: SOD CHL 0.45% 1,000 ML IV SCH (12:00)
[2018-04-20] MEDS: PROPOFOL 100 ML IV SCH (12:46)
[2018-04-20] MEDS: MIDAZOLAM DRIP 50 mg/50mL 50 ML IV SCH (12:46)
[2018-04-20] MEDS: LEVOFLOXACIN 750MG 150 ML IV SCH (14:15)
[2018-04-20] MEDS: MAGNESIUM SULFATE 1GM/100ML 100 ML IV SCH ×2 (15:28→17:09)
[2018-04-20] MEDS ORDERED: TPN PER PHARMACY IV NR ×9 (20:00)
[2018-04-20] MEDS: ALBUMIN 25% 100 ML IV SCH (21:10)
[2018-04-21] VITALS (107 sets, daily range): BP systolic 80–133; BP diastolic 46–100
[2018-04-21] MEDS: InsuLIN REG 1unit/0.01ml Soln (100units/ml) SC SCH ×4 (00:18→18:20)
[2018-04-21] MEDS: ACCU-CHEK COMFORT CURVE STRIP VI SCH ×4 (00:18→18:09)
[2018-04-21] MEDS: SOD CHL 0.45% 1,000 ML IV SCH ×2 (01:20→14:40)
[2018-04-21 04:00] LABS: Hemoglobin 7.7 g/dL (12.2-16.2); Mean Corpuscular Hemoglobin 32.8 pg (28.0-32.0); Platelet Count (auto) 28 10^3/uL (140-450)
[2018-04-21 04:02] LABS: Hematocrit 23.5 % (36.0-46.0); Mean Corpuscular Hgb Conc. 32.5 g/dL (32.0-36.0); Mean Corpuscular Volume 100.9 fL (80.0-100.0); Red Blood Cells 2.33 10^6/uL (4.0-5.20)
[2018-04-21 04:11] LABS: Red Cell Distribution Width 20.8 % (11.8-14.3)
[2018-04-21 04:12] LABS: Band Neutrophils % (manual) 0; Basophils % (manual) 0 (0.0-2.0); Blast Cells 0; Metamyelocytes % 0; Myelocytes % 0; Promyelocytes % 0; Reactive Lymphocytes 0
[2018-04-21 04:13] LABS: Albumin 2.5 g/dL (3.4-5.0); BUN/Creatinine Ratio 10.2; Calcium 7.3 mg/dL (8.5-10.1); Magnesium 2.2 mg/dL (1.6-2.6)
[2018-04-21 04:16] LABS: Bilirubin, Total 4.4 mg/dL (0.2-1.0); Phosphorus 2.7 mg/dL (2.5-4.90); Total Protein 4.2 g/dL (6.4-8.2)
[2018-04-21 04:49] LABS: Eosinophils % (manual) 1 (0-7); Lymphocytes % (manual) 37 (10.0-50.0); Monocytes % (manual) 5 (0-12)
[2018-04-21] MEDS: ALBUMIN 25% 100 ML IV SCH (05:00)
[2018-04-21] MEDS: LACTULOSE 20Gm/30ML SOLN PO SCH ×4 (05:49→18:16)
--- NOTE | 2018-04-21 08:15 | NUR ---
visits and examines patient - orders received.
--- NOTE | 2018-04-21 10:00 | NUR ---
Placed call to patient's re: consent for platelets - states will discuss with family members and return call.
--- NOTE | 2018-04-21 10:30 | NUR ---
Unable to administer IV ATB at present due to need to transfuse platelets and limitations of available IV access and compatibility of meds.
--- NOTE | 2018-04-21 10:50 | NUR ---
Patient's returns call -consent given for platelet transfusion.
[2018-04-21] MEDS: AMIODARONE HCL 200 MG TAB PO SCH (11:15)
[2018-04-21] MEDS: BUMETANIDE (0.25MG/ML) 4 ML VIAL IV SCH (11:15)
[2018-04-21] MEDS: FLUCONAZOLE 200MG/100ML 100 ML IV SCH ×3 (11:15→16:19)
--- NOTE | 2018-04-21 11:30 | NUR ---
visits and examines patient - orders received.
--- NOTE | 2018-04-21 11:44 | NUR ---
Platelet transfusion started - will monitor for s/s transfusion reaction.
[2018-04-21] MEDS ORDERED: ALBUMIN 25% 100 ML IV ONE (11:45)
[2018-04-21] MEDS: MIDAZOLAM DRIP 50 mg/50mL 50 ML IV SCH (12:46)
[2018-04-21] MEDS: PROPOFOL 100 ML IV SCH (12:46)
--- NOTE | 2018-04-21 13:12 | NUR ---
Nutrition Follow-up Notes Wt.: 96.9 kg today. Pt remains intubated, non-sedated, no immediate family member at bedside during rounds this morning. Pt's currently NPO, on TPN @ 69 ml/hr providing 1810 kcal, 80 gms proteins, 1490 NPCs and 17% Fat. Pt with adequate PN support d/t high initiation rate delivery of concentrated formula aeb current PN infusion meets 97% to 92% of est caloric needs and 99% to 125% of est protein needs. Noted pt's to receive tonight another TPN @ same rate and nutrient concentration. Est. Needs BW [id number] kcal (20-23 kcal/kgBW), 64-81 gms pro (0.8-1.0 gms/kgBW d/t elev ammonia severe hypoalb). Will continue to monitor pertinent labs and reassess nutrient need prn Labs: Gluc 195 H, Cr 1.18 H, Ca 7.3 L, Tpro 4.2 L, Alb 2.5 L, Tot ann marie 4.4 H, AST 53 H Skin: Cedric scale 10, high risk, pt with multiple skin tears on left arms, corner of lip per food safety auditor. Pls refer to wire drawing setter's notes 04/19/18 for further details re: tx plans. GI: Pt had 50 ml stool output this morning per food safety auditor. PES: Altered nutrition related lab values r/t current chronic medical condition aeb elev ammonia, hyperbil, severe hypoalb, elev creat Impaired swallowing r/t current medical condition aeb pt`s intubate sedated with order of NPO Will continue to monitor NPO status, PN tolerance, skin status, pertinent labs and weight trend. F/u in 2 to 3 days. Rec.: 1.) If still NPO, continue with PN support that meets at least 75% of needs. 2.) Consider EN support with formula choice of Jevity 1.2 Robbin @ 60 ml/hr, if medically appropriate, per MD approval. 3.) Consider Prostat 1 packet BID if ammonia improve. 4.) Advance gradually to oral diet when medically feasible. 5.) Refer to RD for further nutrition educ. and weight monitoring upon discharge. 6.) Continue current plan of care.
[2018-04-21] MEDS: PHENYLEPHRINE INJ 40 MG in SODIUM CHL 0.9% 250 ML IV SCH (14:22)
[2018-04-21] MEDS: PANTOPRAZOLE 40 MG/10 ML VIAL IV SCH (15:11)
[2018-04-21] MEDS: ALBUMIN 25% 50 ML IV SCH (18:08)
[2018-04-21] MEDS: LEVOFLOXACIN 750MG 150 ML IV SCH (19:30)
[2018-04-21] MEDS ORDERED: TPN PER PHARMACY IV NR ×8 (20:00)
[2018-04-21] MEDS ORDERED: NOREPINEPHRINE 8 MG/250ML KIT 250 ML IV ONE (23:40)
[2018-04-22] VITALS (103 sets, daily range): BP systolic 110–151; BP diastolic 59–88
[2018-04-22] MEDS: ALBUMIN 25% 50 ML IV SCH ×2 (00:30→08:30)
[2018-04-22] MEDS: LORazepam 2MG/ML-1ML VIAL IV PRN (01:50)
[2018-04-22 03:55] LABS: Hematocrit 19.5 % (36.0-46.0); Platelet Count (auto) 45 10^3/uL (140-450); Red Blood Cells 1.91 10^6/uL (4.0-5.20)
[2018-04-22 03:57] LABS: Mean Corpuscular Hgb Conc. 33.3 g/dL (32.0-36.0); Mean Corpuscular Volume 101.8 fL (80.0-100.0); White Blood Cell 5.9 10^3/uL (4.4-10.8)
[2018-04-22] MEDS: SOD CHL 0.45% 1,000 ML IV SCH ×2 (04:00→14:48)
[2018-04-22 04:01] LABS: Calcium 7.5 mg/dL (8.5-10.1); Potassium 3.2 mmol/L (3.5-5.1)
[2018-04-22 04:04] LABS: Red Cell Distribution Width 22.2 % (11.8-14.3)
[2018-04-22 04:05] LABS: Hemoglobin 6.5 g/dL (12.2-16.2)
[2018-04-22 04:07] LABS: Albumin 2.8 g/dL (3.4-5.0); BUN/Creatinine Ratio 14.2; Bilirubin, Total 4.3 mg/dL (0.2-1.0); Magnesium 1.8 mg/dL (1.6-2.6); Phosphorus 2.9 mg/dL (2.5-4.90); Total Protein 4.6 g/dL (6.4-8.2)
[2018-04-22 04:13] LABS: Basophils % (manual) 0 (0.0-2.0); Blast Cells 0; Eosinophils % (manual) 0 (0-7); Metamyelocytes % 0; Myelocytes % 0; Promyelocytes % 0; Reactive Lymphocytes 0
[2018-04-22 05:41] LABS: Band Neutrophils % (manual) 1; Lymphocytes % (manual) 18 (10.0-50.0); Monocytes % (manual) 6 (0-12)
[2018-04-22] MEDS: ACCU-CHEK COMFORT CURVE STRIP VI SCH ×5 (06:00→17:48)
[2018-04-22] MEDS: InsuLIN REG 1unit/0.01ml Soln (100units/ml) SC SCH ×4 (06:00→17:48)
[2018-04-22] MEDS: LACTULOSE 20Gm/30ML SOLN PO SCH ×4 (06:00→17:39)
[2018-04-22] MEDS: PHENYLEPHRINE INJ 40 MG in SODIUM CHL 0.9% 250 ML IV SCH ×2 (07:02→23:42)
--- NOTE | 2018-04-22 08:20 | NUR ---
Dr. Goldsmith at bedside- Potassium ordered-send lab after blood transfusion and call if HGB less than 8.0.
[2018-04-22] MEDS ORDERED: POTASSIUM CHL 20MEQ/100ML 100 ML IV ONE (08:30)
[2018-04-22] MEDS: BUMETANIDE (0.25MG/ML) 4 ML VIAL IV SCH (10:00)
[2018-04-22] MEDS: PANTOPRAZOLE 40 MG/10 ML VIAL IV SCH (10:04)
[2018-04-22] MEDS: AMIODARONE HCL 200 MG TAB PO SCH (10:05)
[2018-04-22] MEDS: FLUCONAZOLE 200MG/100ML 100 ML IV SCH ×2 (10:05→11:00)
--- NOTE | 2018-04-22 10:30 | NUR ---
Dr. Zelaya at bedside,. CXR ABD ABG in the am.
[2018-04-22] MEDS: LEVOFLOXACIN 750MG 150 ML IV SCH (10:58)
[2018-04-22] MEDS ORDERED: CALCIUM GLUC 4.65meq/50ml D5AE 50 ML IV ONE (11:00)
[2018-04-22] MEDS: NOREPINEPHRINE BITARTRATE 16 MG in D5W 5% 250 ML IV SCH (11:07)
--- NOTE | 2018-04-22 11:15 | NUR ---
Blood Transfusion ended- no reactions-albumin and bumex given after.
--- NOTE | 2018-04-22 11:30 | NUR ---
Right IJ Dressing changed -
[2018-04-22] MEDS: PROPOFOL 100 ML IV SCH (12:46)
[2018-04-22] MEDS: MIDAZOLAM DRIP 50 mg/50mL 50 ML IV SCH (12:46)
--- NOTE | 2018-04-22 13:09 | NUR ---
H&H sent to lab for recheck after infusing blood.
--- NOTE | 2018-04-22 13:16 | NUR ---
and Daughter briefly at bedside- updated on patients status,.
[2018-04-22 13:30] LABS: Hematocrit 23.8 % (36.0-46.0)
--- NOTE | 2018-04-22 13:30 | NUR ---
Hemoglobin results back and 8.0 -no new orders per Dr. Goldsmith.
--- NOTE | 2018-04-22 14:16 | NUR ---
Opening Shift Note: Report received from MARY Bedoya. Assumed care of patient, with no sedation and unresponsive. No S/S of distress/SOB or pain. Will continue to monitor for changes Q1hr and PRN. Needs one unit of blood and pending. See Px assessment. Addendum: 04/22/18 at 1436 by Karol Reynoso RN Report received at 0715 am.
--- NOTE | 2018-04-22 17:31 | NUR ---
Updated [facility] on patients status- they want patient transferred. Addendum: 04/22/18 at 1826 by Karol Reynoso RN Will talk with primary tomorrow.
--- NOTE | 2018-04-22 18:24 | NUR ---
Dr. Robin at bedside- no new changes. Addendum: 04/22/18 at 1849 by Karol Reynoso RN Came in at 0941 this morning.
--- NOTE | 2018-04-22 18:48 | NUR ---
Endorsed care to MARY Meehan.
[2018-04-22] MEDS ORDERED: TPN PER PHARMACY IV NR ×10 (20:00)
--- NOTE | 2018-04-22 20:00 | NUR ---
PT ADMITTED ON 04/10/2018 WITH HYPOTENSION. INTUBATED IN ER. WEAK BILATERAL EYE OPENING/SPONTANEOUSLY. PUPILS ARE 5 AND BRISK. LARGE AMOUNT OF CLEAR ORAL SECRETIONS. ORAL INTUBATION. ETT TO VENTILATOR. ON APRV VENTILTION WITH A FIO2 OF 30%. CURRENT RR IS 23. SMALL AMOUNT OF CLEAR SECRETIONS SUCTIONED FROM ETT. LUNGS CLEAR. 2-3+ PITTING EDEMA OF BOTH ARMS , LEGS AND PUBIC AREA. ARMS HAVE OPEN AREAS THAT ARE WEEPING SEROUS FLUID. RIGHT ARM HAS A SKIN TEAR. BOTH ARMS CLEANED AND WRAPPED WITH VASELINE GAUZE AND KERLIX WRAP TO CONTAIN THE DRAINAGE. BOTH ARMS ELEVATED ON PILLOWS. ABDOMEN SOFT. NO BOWEL SOUNDS. FLEXASEAL IN PLACE AND DRAINING BROWN LIQUID. ELMORE IN PLACE AND IT IS DRAINING CLEAR YELLOW LIQUID TO A DOWN DRAIN BAG. ALL PULSES PALPABLE. OGT IS CLAMPED. 2 CC RESIDUAL FROM THE OGT. HAS A RIJ TLC WITH TPN AND 1/2 NS. NEW TPN HUNG WITH NEW TUBING. RECEIVED 1 UPC TODAY. NOTED LI TRANSFER REQUEST.
--- NOTE | 2018-04-22 22:00 | NUR ---
REPOSITIONED TO THE RIGHT. ORAL CARE. LARGE AMOUNT OF CLEAR ORAL SECRETIONS. NOTHING SUCTIONED FROM ETT. LUNGS CLEAR. ABDOMEN SOFT. NO RESIDUAL FROM NGT. CLEAR YELLOW URINE. FLEXASEAL DRAINING. GOOD SEAL AT RECTUM. 2+ PITTING EDEMA IN ARMS AND LEGS PERSIST. DID NOT OPEN EYES THIS TIME. WITHDRAWS TO TACTILE STIMULI.
[2018-04-23] VITALS (102 sets, daily range): BP systolic 116–150; BP diastolic 46–94
--- NOTE | 2018-04-23 | NUR ---
VSS. NOTHING SUCTIONED FROM ETT. LARGE AMOUNT OF CLEAR ORAL SECRETIONS. ORAL CARE DONE. LUNGS CLEAR. ON APRV VENTILATION. ABDOMEN SOFT.HELD LOVENOX DUE TO DIARRHEA. URINE CLEAR YELLOW. NO DRNG AROUND RECTAL AREA. 2+ PITTING EDEMA IN ARMS , LEGS AND PUBIC AREA. WITHDRAWS TO PAINFUL STIMULI.
--- NOTE | 2018-04-23 02:00 | NUR ---
EYES OPEN. NOT FOCUSING ON ME. ORAL CARE. LARGE AMOUNT OF CLEAR FROM THE ORAL CAVITY. NOTHING SUCTIONED FROM THE ETT. LUNGS CLEAR. ABDOMEN SOFT. PITTING EDEMA OF BILATERAL ARMS AND LEGS. PUBIC AREA IS ALSO SWOLLEN. BOTH ARM DRESSING SOAKED WITH SEROUS FLUID. DRESSINGS REMOVED AND NEW KERLIX APPLIED AND SECURED. REPOSITIONED. 1ST DEGREE AV BLOCK.
--- NOTE | 2018-04-23 03:27 | NUR ---
G , AM LABS SENT
[2018-04-23 03:41] LABS: Basophils # (auto) 0 uL
[2018-04-23 03:43] LABS: Basophils % (auto) 0.4 % (0.0-2.0); Eosinophils # (auto) 0.1 uL; Eosinophils % (auto) 0.9 % (0.0-7.0); Hematocrit 24.3 % (36.0-46.0); Hemoglobin 8.1 g/dL (12.2-16.2); Lymphocytes # (auto) 1.1 uL; Lymphocytes % (auto) 12.8 % (10.0-50.0); Mean Corpuscular Hgb Conc. 33.5 g/dL (32.0-36.0); Mean Corpuscular Volume 98.5 fL (80.0-100.0); Monocytes # (auto) 0.5 uL; Neutrophils % (auto) 79.9 % (37.0-80.0); Platelet Count (auto) 52 10^3/uL (140-450); Red Blood Cells 2.46 10^6/uL (4.0-5.20); White Blood Cell 8.7 10^3/uL (4.4-10.8)
--- NOTE | 2018-04-23 04:00 | NUR ---
CHG BATH. PT HAS A TENDENCY TO LEAN HER HEAD TO THE LEFT. DROOLS OCCASIONALLY. SKIN UNDER THE FOLD ON HER NECK IS RED. CLEANED AREA AND PLACED A WASHCLOTH TO DRY THE SPOT. CHEST: SEVERAL ROUND RED RAISED SPOTS AND CIRCLES FROM THE EKG LEAD PLACEMENT. REMOVED ALL THE EKG PADS AND PLACED THEM IN A DIFFERENT AREA. SKIN UNDER BREASTS GOOD. SHAWANDA AREA IS RED IN THE SKIN FOLDS AND IN THE LABIA FOLDS. CLEANED AND Z GUARD APPLIED. BOTTOM OF FEET ARE RED AND BLANCHABLE. LEAKED A LITTLE GREEN FROM THE RECTAL TUBE ONTO THE PAD. SHAWANDA AREA CLEANED. PREVENTATIVE OPTIFOAM ON COCCYX. BOTH ARMS ARE WEEPING A LARGE AMOUNT SEROUS FLUID. NSR WITH OUT ECTOPY. REMAINS ON APRV MODE,. RR HAS BEEN BETWEEN 14 AND 22 ABG RESULTS ARE ALKALOTIC.
[2018-04-23 04:06] LABS: Potassium 3.2 mmol/L (3.5-5.1)
[2018-04-23 04:14] LABS: Albumin 2.4 g/dL (3.4-5.0); BUN/Creatinine Ratio 19.1; Bilirubin, Total 3.4 mg/dL (0.2-1.0); Calcium 7.6 mg/dL (8.5-10.1); Magnesium 1.5 mg/dL (1.6-2.6); Phosphorus 2.9 mg/dL (2.5-4.90); Pre Albumin 7.1 mg/dL (20.0-40.0); Total Protein 4.3 g/dL (6.4-8.2)
[2018-04-23 04:33] LABS: Red Cell Distribution Width 21.6 % (11.8-14.3)
[2018-04-23] MEDS: LACTULOSE 20Gm/30ML SOLN PO SCH ×4 (05:31→17:38)
[2018-04-23] MEDS: InsuLIN REG 1unit/0.01ml Soln (100units/ml) SC SCH ×4 (06:07→17:38)
--- NOTE | 2018-04-23 06:09 | NUR ---
SUCTIONED ETT. LARGE AMOUNT OF CLEAR ORAL SOLUTIONS. DRAINED 510CC OF BILE GREEN LIQUID FROM FLEXASEAL. NGT CLAMPED,NO RESIDUAL. NSR WITHOUT ECTOPY
[2018-04-23] MEDS: SOD CHL 0.45% 1,000 ML IV SCH ×2 (06:40→20:00)
--- NOTE | 2018-04-23 07:15 | NUR ---
Opening Shift Note: Report received from MARY Meehan. Assumed care of patient, with no sedation and unresponsive. No S/S of distress/SOB or pain. Will continue to monitor for changes Q1hr and PRN. H & H good this morning. See Px assessment.
[2018-04-23] MEDS ORDERED: MAGNESIUM SULFATE 1GM/100ML 100 ML IV ONE (08:00)
--- NOTE | 2018-04-23 08:25 | NUR ---
Respiratory note: ETT ADVANCED 3 CM AFTER REVIEWING CXR. RN AT BEDSIDE. ETT NOW SECURED WITH HOLISTER AT [address] Genesis FONTANA AT BEDSIDE.
--- NOTE | 2018-04-23 08:30 | NUR ---
Dr. Goldsmith at bedside- Transfer to [facility].
--- NOTE | 2018-04-23 09:24 | NUR ---
ORDER AND CLINICALS FAXED TO [facility] FOR TRANSFER [phone]. PHONE [phone]
[2018-04-23] MEDS: POTASSIUM CHL 20MEQ/100ML 100 ML IV SCH ×2 (09:27→09:43)
[2018-04-23] MEDS: LEVOFLOXACIN 750MG 150 ML IV SCH (09:36)
[2018-04-23] MEDS: FLUCONAZOLE 200MG/100ML 100 ML IV SCH ×2 (09:36→11:00)
[2018-04-23] MEDS: AMIODARONE HCL 200 MG TAB PO SCH (09:37)
[2018-04-23] MEDS: BUMETANIDE (0.25MG/ML) 4 ML VIAL IV SCH (09:37)
[2018-04-23] MEDS: PANTOPRAZOLE 40 MG/10 ML VIAL IV SCH (09:37)
--- NOTE | 2018-04-23 09:54 | NUR ---
Dr. Robin seen patient -aware of transfer. Stable to transfer.
--- NOTE | 2018-04-23 11:00 | NUR ---
Spoke with support manager -Gaby from [facility]. Patient to be on AC mode on ventilator for transfer.
[2018-04-23] MEDS: NOREPINEPHRINE BITARTRATE 16 MG in D5W 5% 250 ML IV SCH (11:07)
[2018-04-23] MEDS: ACCU-CHEK COMFORT CURVE STRIP VI SCH ×3 (12:00→17:38)
--- NOTE | 2018-04-23 12:00 | NUR ---
Spoke with Dr. Fields - Sascha beckford- mode. Patient stable for transfer.
--- NOTE | 2018-04-23 12:00 | NUR ---
Respiratory note: PT VENT SETTINGS CHANGED FROM APRV TO AC 20, 550, +5, 40% PER DR QURESHI ORDER. PT TOLERATING CHANGE WELL. ABG TO FOLLOW. RN NOTIFIED OF CHANGES. WILL CONTINUE TO MONITOR ORDERED.
[2018-04-23] MEDS: PROPOFOL 100 ML IV SCH (12:46)
[2018-04-23] MEDS: MIDAZOLAM DRIP 50 mg/50mL 50 ML IV SCH (12:46)
[2018-04-23] MEDS: PHENYLEPHRINE INJ 40 MG in SODIUM CHL 0.9% 250 ML IV SCH (12:56)
--- NOTE | 2018-04-23 14:17 | NUR ---
SPOKE WITH DENYS DILLARD AT [facility], THEY ARE WORKING ON THE TRANSFER TO [facility].
--- NOTE | 2018-04-23 15:10 | NUR ---
Left a message for Gaby - corporate giving manager to call me back (she was on another call again). Need to give her the Vent settings and ABG results for patients transfer to [facility]. [facility] number is [phone]
--- NOTE | 2018-04-23 15:16 | NUR ---
Nutrition Follow-up Notes Wt.: 97.0 kg Pt remains intubated, non-sedated, no immediate family member at bedside during rounds this morning. Pt's currently NPO, on TPN @ 69 ml/hr providing 1810 kcal, 80 gms proteins, 1490 NPCs and 17% Fat. Pt with adequate PN support d/t high initiation rate delivery of concentrated formula aeb current PN infusion meets 97% to 92% of est caloric needs and 99% to 125% of est protein needs. Noted pt's to receive tonight another TPN @ same rate and nutrient concentration. Est. Needs BW [id number] kcal (20-23 kcal/kgBW), 64-81 gms pro (0.8-1.0 gms/kgBW d/t elev ammonia severe hypoalb). Will continue to monitor pertinent labs and reassess nutrient need prn Labs: GLU 143 H, ALB 2.4 L, CA 7.6 L, PREALB 7.1 L. Skin: Cedric scale 13, mod risk, pt with multiple skin tears on left arms, corner of lip per assistant basketball coach. Pls refer to manager sterile processing's notes 04/19/18 for further details re: tx plans. GI: Pt had 510 ml stool output this morning per assistant basketball coach. PES: Altered nutrition related lab values r/t current chronic medical condition aeb elev ammonia, hyperbil, severe hypoalb, elev creat Impaired swallowing r/t current medical condition aeb pt`s intubate sedated with order of NPO Will continue to monitor NPO status, PN tolerance, skin status, pertinent labs and weight trend. F/u in 2 to 3 days. Rec.: 1.) If still NPO, continue with PN support that meets at least 75% of needs. 2.) Consider EN support with formula choice of Jevity 1.2 Robbin @ 60 ml/hr, if medically appropriate, per MD approval. 3.) Consider Prostat 1 packet BID if ammonia improve. 4.) Advance gradually to oral diet when medically feasible. 5.) Refer to RD for further nutrition educ. and weight monitoring upon discharge. 6.) Continue current plan of care.
--- NOTE | 2018-04-23 15:17 | NUR ---
RESP NOTE RR CHANGED TO [address] KIERA LUONG TO FOLLOW
--- NOTE | 2018-04-23 16:52 | NUR ---
Respiratory note: ABG RESULTS REPORTED TO DR QURESHI BY TELEPHONE. NO FURTHER VENT CHANGES AT THIS TIME.
--- NOTE | 2018-04-23 17:17 | NUR ---
Spoke with keycase assembler Gaby- gave her the vent settings and abg results.
--- NOTE | 2018-04-23 18:48 | NUR ---
Endorsed care to MARY Meehan. Patient pending room for [facility].
[2018-04-23] MEDS ORDERED: TPN PER PHARMACY IV NR ×10 (20:00)
--- NOTE | 2018-04-23 20:00 | NUR ---
PATIENT ADMITTED WITH HYPOTENSION. LEVOPHED OFF > 24 HOURS. INTUBATED IN ER. CHANGED TO ASSIST CONTROL TODAY. OPENS EYES. WITHDRAWS TO PAINFUL STIMULI. OCCASIONAL SPONTANEOUS MOVEMENT OF HAND OR FOOT. RR 24 WITH AN AC OF 14. LUNGS CLEAR. SUCTIONED ORALLY FOR A LARGE AMOUNT OF CLEAR SECRETIONS. NOTHING SUCTIONED FROM ETT. ABDOMEN SOFT. FLEXASEAL IN AND HAS DRAINED 440CC OF BILE GREEN LIQUID. NGT ORAL: 10 CC RESIDUAL. SEVERAL AREAS ON CHEST WHERE AN ELECTRODE HAD BEEN, LEAVING SMALL RED SUH. ELMORE IN PLACE WITH CLEAR YELLOW LIQUID TO DOWN DRAIN BAG. BILATERAL ARM: AREAS THAT ARE WEEPING SEROUS FLUID. ARMS WRAPPED WITH A PAD. BILATERAL PITTING LEG AND PUBIC EDEMA. ALL PULSES PALPABLE. HEELS OFF BED. SCD ON LEFT LOWER LEG. BLOOD PRESSURE CUFF ON RIGHT LOWER LEG. NSR WITHOUT ECTOPY.
--- NOTE | 2018-04-23 22:50 | NUR ---
RECEIVED A CALL FROM [facility] WITH A BED ASSIGNMENT OF ROOM 231. [facility] IS TO INSECTICIDE MAKER WITHIN 90 MINUTES.
--- NOTE | 2018-04-23 23:00 | NUR ---
REPORT CALLED TO [facility] ICU MACHINE WELDER MUSA.
--- NOTE | 2018-04-23 23:03 | NUR ---
CALL PLACED TO FOR PERMISSION TO TRANSFER TO [facility]
--- NOTE | 2018-04-23 23:30 | NUR ---
RECEIVED PERMISSION FROM THE TO TRANSFER THE PATIENT TO [facility]. INFORMED THE OF THE ROOM SHE WOULD GO TO, THE HOSPITAL SHE WILL BE AT, AND THE NUMBER TO THE ICU UNIT SHE WILL BE IN.
[2018-04-24] VITALS: BP 130/70
[2018-04-24] MEDS: LACTULOSE 20Gm/30ML SOLN PO SCH
[2018-04-24 00:14] VITALS: BP 130/70
[2018-04-24 00:15] VITALS: BP 140/77
[2018-04-24] MEDS: ACCU-CHEK COMFORT CURVE STRIP VI SCH (00:23)
[2018-04-24] MEDS: InsuLIN REG 1unit/0.01ml Soln (100units/ml) SC SCH (00:27)
[2018-04-24 00:30] VITALS: BP 139/79
--- NOTE | 2018-04-24 00:42 | NUR ---
[facility] HERE. REPORT GIVEN TO THE RT AND THE RN.
[2018-04-24 00:45] VITALS: BP 125/84
[2018-04-24 01:00] VITALS: BP 125/84
--- NOTE | 2018-04-24 01:13 | NUR ---
PATIENT ON [facility]. [facility] LEFT WITH PATIENT ON PORTABLE VENTILATOR AND MONITOR.
== END 2018-04-24 01:18 | disposition short-term general hospital, planned readmission (82) | DRG 870 ==
LOC: ER 18:55 → EDBD 04-10 06:06 → TELE 04-10 06:06 → ICU WEST 04-12 20:08
PROVIDERS: ADMIT Nurse Practitioner Family; ATTEND Family Medicine
PROC: 02HV33Z Insertion of Infusion Device into Superior Vena Cava, Percutaneous Approach (ICD-10-PCS; 2018-04-11)
PROC: 5A1955Z Respiratory Ventilation, Greater than 96 Consecutive Hours (ICD-10-PCS; 2018-04-12)
PROC: 0BH17EZ Insertion of Endotracheal Airway into Trachea, Via Natural or Artificial Opening (ICD-10-PCS; 2018-04-12)
PROC: 30233R1 Transfusion of Nonautologous Platelets into Peripheral Vein, Percutaneous Approach (ICD-10-PCS; principal; 2018-04-21)
PROC: 30233N1 Transfusion of Nonautologous Red Blood Cells into Peripheral Vein, Percutaneous Approach (ICD-10-PCS; 2018-04-22)
DX: A41.9 Sepsis, unspecified organism (principal); E43 Unspecified severe protein-calorie malnutrition; G92 Toxic encephalopathy; J18.9 Pneumonia, unspecified organism; J80 Acute respiratory distress syndrome; J96.01 Acute respiratory failure with hypoxia; K72.00 Acute and subacute hepatic failure without coma; N17.0 Acute kidney failure with tubular necrosis; R65.21 Severe sepsis with septic shock; E87.4 Mixed disorder of acid-base balance; E87.0 Hyperosmolality and hypernatremia; I48.92 Unspecified atrial flutter; N30.00 Acute cystitis without hematuria; R18.8 Other ascites; I47.2 Ventricular tachycardia; B96.20 Unspecified Escherichia coli [E. coli] as the cause of diseases classified elsewhere; D64.9 Anemia, unspecified; D69.6 Thrombocytopenia, unspecified; D86.9 Sarcoidosis, unspecified; E03.9 Hypothyroidism, unspecified; E11.9 Type 2 diabetes mellitus without complications; E66.9 Obesity, unspecified; E83.39 Other disorders of phosphorus metabolism; E83.42 Hypomagnesemia; E86.0 Dehydration; E87.6 Hypokalemia; F02.80 Dementia in other diseases classified elsewhere, unspecified severity, without behavioral disturbance, psychotic disturbance, mood disturbance, and anxiety; F17.200 Nicotine dependence, unspecified, uncomplicated; G30.9 Alzheimer's disease, unspecified; G89.4 Chronic pain syndrome; I11.0 Hypertensive heart disease with heart failure; I48.91 Unspecified atrial fibrillation; I49.3 Ventricular premature depolarization; I50.9 Heart failure, unspecified; I95.0 Idiopathic hypotension; K52.9 Noninfective gastroenteritis and colitis, unspecified; K74.60 Unspecified cirrhosis of liver; K76.0 Fatty (change of) liver, not elsewhere classified; M79.7 Fibromyalgia; Z82.49 Family history of ischemic heart disease and other diseases of the circulatory system; Z90.49 Acquired absence of other specified parts of digestive tract; Z90.710 Acquired absence of both cervix and uterus; Z98.84 Bariatric surgery status; G89.29 Other chronic pain
CPT/HCPCS: 36415; 36600; 70450; 71045; 74176; 76705; 80048; 80053; 80074; 80076; 80307; 80320; 81001; 82040; 82140; 82570; 82607; 82746; 82805; 82962; 83605; 83735; 83880; 84100; 84156; 84300; 84443; 84478; 84484; 84550; 85007; 85014; 85018; 85025; 85027; 85610; 85730; 86850; 86900; 86901; 86920; 87040; 87070; 87081; 87086; 87088; 87186; 87205; 87493; 93005; 94002; 94003; 94640; 95819; 96365; 96366; 96375; A4565; A4618; A6257; C9113; G0378; J0330; J0610; J0696; J1450; J1815; J1956; J2250; J2405; J2543; J2704; J3480; J7060; P9047